=== PATIENT | female | born 1980 | race Caucasian/White ===

== ENCOUNTER → 2017-05-05 | Outpatient (CLI) | payer MEDICAID ==
[2016-07-13 11:37] VITALS: BMI 54.4
[~2017-05-05] MED LIST: ABILIF5PT PO; ACE3 PO; ACE500 PO; ALB6.7R INH; ALBU2.5V36 INH; ALBU8.5H IH; AMOX-559 PO; ARIP15TA9 PO; ARIP5TAB PO; ARIP5TAB28 PO; AZI250 PO; AZIT-1 PO; BUDE0.5A IH; CEPH500C24 PO; CYCL15CA18 PO; DES100PT PO; DESV50TA9 PO; DEXTROSE 5%(*) 100 ML BAG 100 ML IVPB PRN; DIA5 PO; DIC10 PO; DICL1ADH32 TD; DICY-42 PO; DICY10CA11 PO; DIPH-1 PO; DIPH-740 PO; DOCU-214 PO; DOXY-179 PO; DOXY-181 PO; ECHI80CA2 PO; EPIN0.3P15 IM; ESOM20CA31 PO; FAMO20TA28 PO; FERR240T23 PO; FEXO-67 PO; FLU60SYR30 IM ONLY; FLUT16SP19 NS; FURO20TA19 PO; GABA-503 PO; GABA-549 PO; GING1POW MC; GING250C3 PO; GUAI473L81 PO; HYDR-385 PO; HYDR-4225 PO; HYDR-4309 PO; HYOS0.1225 PO; IBU600 PO; IBU800 PO; IBUP-1618 PO; IPRA3AMP21 IH; KET10 PO; KETC15T TP; KETOCONAZOLE 2% TOP; KORE100C3 PO; LEVE250T42 PO; LEVE250T63 PO; LEVO-85 PO; LEVO500T PO; LEVO50TA86 PO; LEVO750T27 PO; LEVO750T44 PO; LIDOCAINE/SOD BICARB 8.4% SYR ID PRN; LOR5 PO; MAGN27TA6 PO; MAGN296S35 PO; MAGN400C PO; MECL12.5 PO; MECL25TA27 PO; MECL25TA9 PO; MET4 PO; METF500T4 PO; METR-1 PO; MID PO; MULT-865 PO; MUPI15CR2 TP; NAPR-1043 PO; NAPR-724 PO; NAPR220C12 PO; NAPR550T20 PO; NIC10R INH; NITR-105 PO; NS(*) 0.9% 100 ML BAG 100 ML IVPB PRN; NS(*) 0.9% 1000 ML BAG 1,000 ML IV ONE; NYST60PO9 TP; OMEP-125 PO; OXC300 PO; PANT40TA65 PO; PRED20TA6 PO; PRO25 PO; PROM-110 PO; PROP60TA15 PO; PSYL0.5235 PO; RANI-324 PO; RELACORE; ROBC PO; SER50 PO; SERT20OR6 PO; SULF-198 PO; SUMA100T33 PO; SUMA4PEN3 SQ; TIZA-1 PO; TRAZ-163 PO; TRAZ50 PO; TRIA-19 PO; TRIORA DT; TURM500C7 PO; UBID100C48 PO; UBID100C9 PO; VER40 PO; VITA-175 PO; VITA150T2 PO; ZINC30CA2 PO; [UNRECOGNIZED DRUG - OTHER] PO; [UNRECOGNIZED DRUG - OTHER] TOP
[2017-05-05 11:20] VITALS: BP 104/76
[2017-05-05 11:27] LABS: PLATELET COUNT, AUTOMATED 436 K/uL (150-450)
[2017-05-05 12:32] VITALS: BP 119/73
== END ==
LOC: SPU 10:30
PROVIDERS: ATTEND Emergency Medicine
DX: E86.0 Dehydration (principal)
CPT/HCPCS: 85025; J7030; 82040; 82247; 82310; 82374; 82435; 82565; 82947; 84075; 84132; 84155; 84295; 84450; 84460; 84520; 96360

== ENCOUNTER 2017-06-27 18:36 | Emergency (ER) | payer MEDICAID ==
[2016-07-13 11:37] VITALS: Ht 162.6 cm; Wt 138.5 kg
[~2017-06-27] VITALS: Ht 162.6 cm; Wt 138.5 kg
[~2017-06-27 18:36] MED LIST changes: -DEXTROSE 5%(*) 100 ML BAG 100 ML IVPB PRN; -LIDOCAINE/SOD BICARB 8.4% SYR ID PRN; +LISI-362 PO; -NAPR-724 PO; +NAPR500T31 PO; -NS(*) 0.9% 100 ML BAG 100 ML IVPB PRN; -NS(*) 0.9% 1000 ML BAG 1,000 ML IV ONE
--- NOTE | 2017-06-27 18:42 | ER Report ---
History and Physical Time Seen By MD: 18:41 Hx. of Stated Complaint: Ear pain right HPI/ROS 37-year-old female ambulatory to the emergency room complains of right ear pain 24 hours states she has a fullness sharp pain in her right ear from no drainage no fevers no previous ear infection Remainder of the 14 system rev: Yes Allergies: Coded Allergies: cephalexin (Verified Allergy, Severe, ANAPHYLAXIS, 06/27/17) latex (Verified Allergy, Mild, ITCHING, 06/27/17) onion (Verified Allergy, Mild, ANAPHYLAXIS, 06/27/17) metformin (Verified Adverse Reaction, Intermediate, Myositis, 06/27/17) Home Meds Active Scripts Azithromycin (ZITHROMAX) 250 Mg Tablet, 2 TAB PO ONCE for 4 Days, #8 TAB Prov:OUMAR CARBALLO 06/27/17 Propranolol Hcl (PROPRANOLOL HCL) 60 Mg Tablet, 1 TAB PO BID for 90 Days, #90 TAB 4 Refills Prov:JOE JOLLEY MD 04/27/17 Levothyroxine Sodium (LEVOTHYROXINE SODIUM) 50 Mcg Tablet, 1 TAB PO QDAY, #90 TAB 3 Refills Prov:JOE JOLLEY MD 01/20/17 Fluticasone Prop 50 Mcg Ns (FLONASE 50 MCG NS) 16 Gm [place].susp, 1 SPRAYS NS BID , #3 BOT 3 Refills Prov:JOE JOLLEY MD 01/20/17 Pantoprazole Sodium (PANTOPRAZOLE SODIUM) 40 Mg Tablet.dr, 1 TAB PO QDAY, #90 TAB 3 Refills Prov:JOE JOLLEY MD 01/20/17 Albuterol Sulfate 90 Mcg/Act (PROAIR HFA 90 MCG/ACT) 8.5 Gm Hfa.aer.ad, 1-2 PUFF IH 3-4XD, #1 INHALER 11 Refills Prov:JOE JOLLEY MD 11/01/16 Tizanidine Hcl (TIZANIDINE HCL) 2 Mg Tablet, 1 TAB PO DAILY, #30 TAB 11 Refills Prov:JOE JOLLEY MD 11/01/16 Ranitidine Hcl (ZANTAC) 150 Mg Tablet, 1 TAB PO BID, #180 TAB 3 Refills Prov:JOE JOLLEY MD 10/17/16 Meclizine Hcl (MECLIZINE HCL) 25 Mg Tablet, 1 TAB PO BID, #180 TAB 3 Refills Prov:JOE JOLLEY MD 10/17/16 Fexofenadine Hcl (FARIHA ALLERGY) 180 Mg Tablet, 1 TAB PO QDAY, #90 TAB 3 Refills Prov:JOE JOLLEY MD 10/10/16 Albuterol Sulfate 0.083% (ALBUTEROL SULFATE 0.083%) 2.5 Mg/3 Ml Vial.neb, 2.5 MG INH Q4-6H Y for WHEEZING, #25 INH 2 Refills Prov:RAYSHAWN ARMAS V DO 06/15/16 Reported Medications Gabapentin (GABAPENTIN) 300 Mg Capsule, 1 CAP PO TID, CAPSULE 09/12/16 Epinephrine (EPIPEN 2-YUVAL) 0.3 Mg/0.3 Ml Pen.injctr, 0.3 MG IM PRN 09/12/16 Desvenlafaxine Succinate (PRISTIQ ER) 100 Mg Tabcr, 1 TAB PO DAILY 07/12/16 Levetiracetam (KEPPRA) 250 Mg Tablet, 1 TAB PO BID, TAB 02/29/16 Multivitamin (DAILY MULTIPLE VITAMIN) 1 Each Tablet, 1 EACH PO QDAY 01/23/16 Discontinued Reported Medications Aripiprazole (ABILIFY) 5 Mg Tablet, 1 TAB PO QDAY, #10 TAB 09/21/16 Discontinued Scripts Lisinopril (LISINOPRIL) 10 Mg Tablet, 10 MG PO QDAY, #30 TAB Prov:JOE JOLLEY MD 06/09/17 Diphenoxylate Hcl/Atropine (LOMOTIL TABLET) 1 Each Tablet, 1 EACH PO Q4-6H, #20 TAB Prov:JOE JOLLEY MD 05/05/17 Past Medical/Surgical History A fever, seizures, headaches, migraine, hypercholesterolemia, hyperlipidemia, hypertension, emphysema, oxygen dependent, GERD, tubal ligation, hysterectomy, Reviewed Nurses Notes: Yes Old Medical Records Reviewed: Yes Hx Smoking: Yes Smoking Status: Current: Every Day Smoker Exposure to Second Hand Smoke?: No Hx Substance Use Disorder: No Hx Alcohol Use: Yes (RARE) Constitutional Vital Sign - Last 24 Hours 06/27/17 18:45 Temp 97.8 Pulse 84 Resp 17 B/P (MAP) 141/78 Pulse Ox 95 O2 Delivery Room Air Physical Exam 37-year-old female alert oriented mild distress HEENT has normocephalic/ atraumatic tympanic membranes she has a bulging right eardrum also noted to have her right ear canal appears that she may have been manipulating something trying to clean it throat is non-reddened no lymphadenopathy neck is supple no JVD heart rate regular no murmurs rubs and gallops lungs decreased bilateral bases abdomen is obese bowel sounds 4 moves all extremities trace peripheral edema Medical Decision Making ED Course/Re-evaluation ED Course 1st doses azithromycin given by mouth she does have a penicillin allergy, Ciprodex 3 drops to right ear dispensed rest of medication Re-evaluation No acute distress some dismissal Decision to Disposition Date: Jun 27, 2017 Decision to Disposition Time: 18:56 Depart Departure Latest Vital Signs Vital Signs Date Time Temp Pulse Resp B/P (MAP) Pulse Ox O2 Delivery O2 Flow Rate FiO2 06/27/17 18:45 97.8 84 17 141/78 95 Room Air Impression: Primary Impression: Otitis media Additional Impression: Otitis externa of right ear Condition: Improved Disposition: HOME OR SELF-CARE Referrals: JOE JOLLEY MD (PCP) 1 Week New Scripts Azithromycin (ZITHROMAX) 250 Mg Tablet 2 TAB PO ONCE for 4 Days, #8 TAB Prov: OUMAR CARBALLO 06/27/17 Patient Instructions: Otitis Externa (DC), Otitis Media (ED) Additional Instructions: Take Zithromax 500 mg daily for 4 additional days Ciprodex drops 3 drops twice a day for 7 days Problem Qualifiers OUMAR CARBALLO Jun 27, 2017 18:42
[2017-06-27 18:45] VITALS: BP 141/78
[2017-06-27] MEDS ORDERED: CIPRO RIGHT EAR ONE (18:50)
[2017-06-27] MEDS ORDERED: AZIT-1 PO (18:50)
[2017-06-27] MEDS ORDERED: HYDROCORT RIGHT EAR ONE (18:50)
[2017-06-27] MEDS ORDERED: AZITHROMYCIN 250 MG TAB PO ONE (18:50)
== END 2017-06-27 19:10 | disposition home or self-care (01) ==
LOC: ER 18:56
DX: H66.91 Otitis media, unspecified, right ear (principal); H60.91 Unspecified otitis externa, right ear
CPT/HCPCS: 99282; Q0144

== ENCOUNTER → 2017-07-07 | Outpatient (CLI) | payer MEDICAID ==
[2016-07-13 11:37] VITALS: BMI 54.4
[~2017-07-07] MED LIST changes: +LEVO-3 PO
== END ==
LOC: LAB 10:22
PROVIDERS: ATTEND Emergency Medicine
DX: G40.909 Epilepsy, unspecified, not intractable, without status epilepticus (principal); R73.03 Prediabetes; E03.9 Hypothyroidism, unspecified
CPT/HCPCS: 36415; 82310; 82374; 82435; 82565; 82947; 83036; 84132; 84295; 84443; 84520

== ENCOUNTER → 2017-07-19 | Outpatient (CLI) | payer MEDICAID ==
[2016-07-13 11:37] VITALS: BMI 54.4
== END ==
LOC: RESP 07:22
PROVIDERS: ATTEND Psychiatry & Neurology Neurology
DX: G40.009 Localization-related (focal) (partial) idiopathic epilepsy and epileptic syndromes with seizures of localized onset, not intractable, without status epilepticus (principal)
CPT/HCPCS: 95819

== ENCOUNTER → 2017-09-06 | Outpatient (CLI) | payer MEDICAID ==
[2016-07-13 11:37] VITALS: BMI 54.4
[~2017-09-06] MED LIST changes: -RANI-324 PO; +RANI-366 PO
== END ==
LOC: LAB 08:53
PROVIDERS: ATTEND Emergency Medicine
DX: E03.9 Hypothyroidism, unspecified (principal); I10 Essential (primary) hypertension
CPT/HCPCS: 36415; 82310; 82374; 82435; 82565; 82947; 84132; 84295; 84443; 84520

== ENCOUNTER 2017-10-04 21:29 | Emergency (ER) | payer MEDICAID ==
[2016-07-13 11:37] VITALS: Wt 141.7 kg
--- NOTE | 2017-10-04 21:35 | ER Report ---
History and Physical Time Seen By MD: 21:43 HPI/ROS This is a 37-year-old female with multiple medical problems who presents to the emergency department with blood in her stool and pain with stooling and passing of gas. She has a long-standing history of problems with hemorrhoids. She states this feels different than her hemorrhoids. She has had various episodes of blood in her stool and has been receiving home endoscopies every 3 years for the past 10 years. Last colonoscopy was one year ago. They have been normal thus far. She also reports intermittent constipation as well as diarrhea. She denies abdominal pain. She has no other complaints Remainder of the 14 system rev: Yes Allergies: Coded Allergies: cephalexin (Verified Allergy, Severe, ANAPHYLAXIS, 06/27/17) latex (Verified Allergy, Mild, ITCHING, 06/27/17) onion (Verified Allergy, Mild, ANAPHYLAXIS, 06/27/17) metformin (Verified Adverse Reaction, Intermediate, Myositis, 06/27/17) Home Meds Active Scripts Levothyroxine Sodium (LEVOTHYROXINE SODIUM) 100 Mcg Tablet, 100 MCG PO DAILY, # 90 TAB 3 Refills Prov:JOE JOLLEY MD 09/06/17 Lisinopril (LISINOPRIL) 10 Mg Tablet, 10 MG PO QDAY, #90 TAB 3 Refills Prov:JOE JOLLEY MD 09/01/17 Meclizine Hcl (MECLIZINE HCL) 25 Mg Tablet, 1 TAB PO BID, #180 TAB 3 Refills Prov:JOE JOLLEY MD 07/07/17 Fluticasone Prop 50 Mcg Ns (FLONASE 50 MCG NS) 16 Gm [place].susp, 1 SPRAYS NS BID , #3 BOT 3 Refills Prov:JOE JOLLEY MD 01/20/17 Pantoprazole Sodium (PANTOPRAZOLE SODIUM) 40 Mg Tablet.dr, 1 TAB PO QDAY, #90 TAB 3 Refills Prov:JOE OJLLEY MD 01/20/17 Albuterol Sulfate 90 Mcg/Act (PROAIR HFA 90 MCG/ACT) 8.5 Gm Hfa.aer.ad, 1-2 PUFF IH 3-4XD, #1 INHALER 11 Refills Prov:JOE JOLLEY MD 11/01/16 Tizanidine Hcl (TIZANIDINE HCL) 2 Mg Tablet, 1 TAB PO DAILY, #30 TAB 11 Refills Prov:JOE JOLLEY MD 11/01/16 Ranitidine Hcl (ZANTAC) 150 Mg Tablet, 1 TAB PO BID, #180 TAB 3 Refills Prov:JOE JOLLEY MD 10/17/16 Fexofenadine Hcl (FARIHA ALLERGY) 180 Mg Tablet, 1 TAB PO QDAY, #90 TAB 3 Refills Prov:JOE JOLLEY MD 10/10/16 Albuterol Sulfate 0.083% (ALBUTEROL SULFATE 0.083%) 2.5 Mg/3 Ml Vial.neb, 2.5 MG INH Q4-6H Y for WHEEZING, #25 INH 2 Refills Prov:RAYSHAWN ARMAS DO 06/15/16 Reported Medications Gabapentin (GABAPENTIN) 300 Mg Capsule, 1 CAP PO TID, CAPSULE 09/12/16 Epinephrine (EPIPEN 2-YUVAL) 0.3 Mg/0.3 Ml Pen.injctr, 0.3 MG IM PRN 09/12/16 Desvenlafaxine Succinate (PRISTIQ ER) 100 Mg Tabcr, 1 TAB PO DAILY 07/12/16 Levetiracetam (KEPPRA) 250 Mg Tablet, 1 TAB PO BID, TAB 02/29/16 Multivitamin (DAILY MULTIPLE VITAMIN) 1 Each Tablet, 1 EACH PO QDAY 01/23/16 Reviewed Nurses Notes: Yes Old Medical Records Reviewed: Yes Hx Smoking: Yes Smoking Status: Current: Every Day Smoker Exposure to Second Hand Smoke?: No Hx Substance Use Disorder: No Hx Alcohol Use: Yes (RARE) Constitutional Vital Sign - Last 24 Hours 10/04/17 10/04/17 10/04/17 10/04/17 21:33 21:34 21:44 21:59 Temp 98.4 Pulse 99 92 95 Resp 20 B/P (MAP) 150/85 150/85 (106) Pulse Ox 95 96 96 O2 Delivery Room Air 10/04/17 10/04/17 10/04/17 10/04/17 22:00 22:14 22:29 22:30 Pulse 97 94 B/P (MAP) 106/62 (77) 117/57 (77) Pulse Ox 95 95 Physical Exam General Appearance: The patient is alert, has no immediate need for airway protection and no current signs of toxicity. Eyes: Pupils equal and round no injection. Respiratory: Chest is non tender, lungs are clear to auscultation. Cardiac: regular rate and rhythm Gastrointestinal: Abdomen is soft and non tender, no masses, bowel sounds normal. Rectal: External hemorrhoid, not thrombosed. There is a small internal fissure. Extremities have full range of motion and are non tender. Skin: No rashes or lesions. DIFFERENTIAL DIAGNOSIS: After history and physical exam differential diagnosis was considered for hemorrhoids, fissure, colon cancer, diverticulitis Medical Decision Making Data Points Result Diagram: 10/04/17221010/04/171 Laboratory Hematology Test 10/04/17 22:11 Red Blood Count 4.24 M/uL (4.17-5.56) Mean Corpuscular Volume 80.2 fL (80.0-96.0) Mean Corpuscular Hemoglobin 26.7 pg (26.0-33.0) Mean Corpuscular Hemoglobin Concent 33.3 g/dL (32.0-36.0) Red Cell Distribution Width 16.8 % (11.5-14.5) Mean Platelet Volume 7.7 fL (7.2-11.1) Neutrophils (%) (Auto) 61.7 % (39.4-72.5) Lymphocytes (%) (Auto) 29.2 % (17.6-49.6) Monocytes (%) (Auto) 5.5 % (4.1-12.4) Eosinophils (%) (Auto) 2.6 % (0.4-6.7) Basophils (%) (Auto) 1.0 % (0.3-1.4) Nucleated RBC Relative Count (auto) 0.0 /100WBC Neutrophils # (Auto) 6.3 K/uL (2.0-7.4) Lymphocytes # (Auto) 3.0 K/uL (1.3-3.6) Monocytes # (Auto) 0.6 K/uL (0.3-1.0) Eosinophils # (Auto) 0.3 K/uL (0.0-0.5) Basophils # (Auto) 0.1 K/uL (0.0-0.1) Nucleated RBC Absolute Count (auto) 0.00 K/uL Sodium Level 139 mmol/L (137-145) Potassium Level 3.4 mmol/L (3.5-5.0) Chloride Level 101 mmol/L (98-107) Carbon Dioxide Level 23 mmol/L (22-31) Blood Urea Nitrogen 9 mg/dl (7-18) Creatinine 0.70 mg/dl (0.52-1.04) Glomerular Filtration Rate Calc > 60.0 Random Glucose 165 mg/dl (75-110) Calcium Level 9.1 mg/dl (8.4-10.2) Chemistry Test 10/04/17 22:11 White Blood Count 10.2 k/uL (4.5-11.0) Red Blood Count 4.24 M/uL (4.17-5.56) Hemoglobin 11.3 g/dL (12.0-16.0) Hematocrit 34.0 % (34.0-47.0) Mean Corpuscular Volume 80.2 fL (80.0-96.0) Mean Corpuscular Hemoglobin 26.7 pg (26.0-33.0) Mean Corpuscular Hemoglobin Concent 33.3 g/dL (32.0-36.0) Red Cell Distribution Width 16.8 % (11.5-14.5) Platelet Count 339 K/uL (150-450) Mean Platelet Volume 7.7 fL (7.2-11.1) Neutrophils (%) (Auto) 61.7 % (39.4-72.5) Lymphocytes (%) (Auto) 29.2 % (17.6-49.6) Monocytes (%) (Auto) 5.5 % (4.1-12.4) Eosinophils (%) (Auto) 2.6 % (0.4-6.7) Basophils (%) (Auto) 1.0 % (0.3-1.4) Nucleated RBC Relative Count (auto) 0.0 /100WBC Neutrophils # (Auto) 6.3 K/uL (2.0-7.4) Lymphocytes # (Auto) 3.0 K/uL (1.3-3.6) Monocytes # (Auto) 0.6 K/uL (0.3-1.0) Eosinophils # (Auto) 0.3 K/uL (0.0-0.5) Basophils # (Auto) 0.1 K/uL (0.0-0.1) Nucleated RBC Absolute Count (auto) 0.00 K/uL Glomerular Filtration Rate Calc > 60.0 Calcium Level 9.1 mg/dl (8.4-10.2) ED Course/Re-evaluation ED Course 37-year-old female who presents to the emergency department with pain in her anus with stooling or with passing of gas. He does have a history of hemorrhoids. On rectal exam she has a external hemorrhoid that is not thrombosed she also has evidence of an anal fissure. I counseled her on making sure that she does not get constipated. I also spoke with her about the treatment of anal fissures. She will continue home management. She also states that she has had bleeding from her rectum in the past and has been having every three-year colonoscopies since she was 27 years old. Last colonoscopy was one year ago. She has no abdominal pain. She will continue supportive management of her anal fissures Decision to Disposition Date: Oct 04, 2017 Decision to Disposition Time: 23:24 Depart Departure Latest Vital Signs Vital Signs Date Time Temp Pulse Resp B/P (MAP) Pulse Ox O2 Delivery O2 Flow Rate FiO2 10/04/17 22:30 117/57 (77) 10/04/17 22:29 94 95 10/04/17 21:33 98.4 20 Room Air Impression: Primary Impression: ACUTE ANAL FISSURE Condition: Improved Disposition: HOME OR SELF-CARE Referrals: JOE JOLLEY MD (PCP) Patient Instructions: Anal Fissure (ED) PEDRO GLEZ MD Oct 04, 2017 21:35
[2017-10-04 22:18] LABS: PLATELET COUNT, AUTOMATED 339 K/uL (150-450)
[2017-10-04 23:30] VITALS: BP 125/70
[2017-10-05] MEDS ORDERED: FEXO-67 PO (14:54)
== END 2017-10-04 23:34 | disposition home or self-care (01) ==
LOC: ER 21:46
DX: K60.0 Acute anal fissure (principal); K64.4 Residual hemorrhoidal skin tags
CPT/HCPCS: 82310; 82374; 82435; 82565; 82947; 84132; 84295; 84520; 85025; 99282

== ENCOUNTER 2017-10-18 10:09 | Emergency (ER) | payer MEDICAID ==
[2016-07-13 11:37] VITALS: Wt 140.6 kg
[2017-10-18] MEDS ORDERED: LURA20TA PO (10:22)
--- NOTE | 2017-10-18 10:37 | ER Report ---
History and Physical Time Seen By MD: 10:37 Hx. of Stated Complaint: SEVERE NAUSEA FOR THE PAST THREE DAYS. WAS ABLE TO EAT TWO FULL MEALS YESTERDAY WITHOUT VOMMITTING, BUT STATES PAIN IN STOMACH WAS GETTING WORSE LAST NIGHT. HPI/ROS CHIEF COMPLAINT: Nausea and abdominal pain HISTORY OF PRESENT ILLNESS: This is a 37-year-old female. She is having severe nausea for the last 3 days. She has been trying to drink fluid but probably not getting as much as she needs to. She was able to eat 2 meals yesterday without vomiting but the pain is now getting worse today. She has pain on the left side of her abdomen and then a little bit in the epigastric area. She denies any fevers. She is having some loose stools, last bowel movement was last night. No blood or melena. Urinating a little bit less but denies any dysuria. No shortness of breath or chest pain. She does feel weak and maybe a little bit lightheaded. Allergies: Coded Allergies: cephalexin (Verified Allergy, Severe, ANAPHYLAXIS, 06/27/17) latex (Verified Allergy, Mild, ITCHING, 06/27/17) onion (Verified Allergy, Mild, ANAPHYLAXIS, 06/27/17) metformin (Verified Adverse Reaction, Intermediate, Myositis, 06/27/17) Home Meds Active Scripts Ondansetron (ZOFRAN ODT) 4 Mg Tab.rapdis, 4 MG PO Q6H Y for NAUSEA/VOMITING, # 20 TAB.KIM 0 Refills Prov:HARRIS WATSON MD 10/18/17 Hydrocodone Bit/Acetaminophen (HYDROCODON-ACETAMINOPHEN 5-325) 1 Each Tablet, 1 EACH PO Q4H Y for PAIN, #12 TAB 0 Refills Prov:HARRIS WATSON MD 10/18/17 Fexofenadine Hcl (FARIHA ALLERGY) 180 Mg Tablet, 1 TAB PO QDAY, #90 TAB 3 Refills Prov:JOE JOLLEY MD 10/05/17 Levothyroxine Sodium (LEVOTHYROXINE SODIUM) 100 Mcg Tablet, 100 MCG PO DAILY, # 90 TAB 3 Refills Prov:JOE JOLLEY MD 09/06/17 Lisinopril (LISINOPRIL) 10 Mg Tablet, 10 MG PO QDAY, #90 TAB 3 Refills Prov:JOE JOLLEY MD 09/01/17 Meclizine Hcl (MECLIZINE HCL) 25 Mg Tablet, 1 TAB PO BID, #180 TAB 3 Refills Prov:JOE JOLLEY MD 07/07/17 Fluticasone Prop 50 Mcg Ns (FLONASE 50 MCG NS) 16 Gm [place].susp, 1 SPRAYS NS BID , #3 BOT 3 Refills Prov:JOE JOLLEY MD 01/20/17 Pantoprazole Sodium (PANTOPRAZOLE SODIUM) 40 Mg Tablet.dr, 1 TAB PO QDAY, #90 TAB 3 Refills Prov:JOE JOLLEY MD 01/20/17 Albuterol Sulfate 90 Mcg/Act (PROAIR HFA 90 MCG/ACT) 8.5 Gm Hfa.aer.ad, 1-2 PUFF IH 3-4XD, #1 INHALER 11 Refills Prov:JOE JOLLEY MD 11/01/16 Tizanidine Hcl (TIZANIDINE HCL) 2 Mg Tablet, 1 TAB PO DAILY, #30 TAB 11 Refills Prov:JOE JOLLEY MD 11/01/16 Ranitidine Hcl (ZANTAC) 150 Mg Tablet, 1 TAB PO BID, #180 TAB 3 Refills Prov:JOE JOLLEY MD 10/17/16 Albuterol Sulfate 0.083% (ALBUTEROL SULFATE 0.083%) 2.5 Mg/3 Ml Vial.neb, 2.5 MG INH Q4-6H Y for WHEEZING, #25 INH 2 Refills Prov:RAYSHAWN AMRAS V DO 06/15/16 Reported Medications Lurasidone Hcl (LATUDA) 20 Mg Tablet, 20 MG PO HS 10/18/17 Gabapentin (GABAPENTIN) 300 Mg Capsule, 1 CAP PO TID, CAPSULE 09/12/16 Epinephrine (EPIPEN 2-YUVAL) 0.3 Mg/0.3 Ml Pen.injctr, 0.3 MG IM PRN 09/12/16 Desvenlafaxine Succinate (PRISTIQ ER) 100 Mg Tabcr, 1 TAB PO DAILY 07/12/16 Levetiracetam (KEPPRA) 250 Mg Tablet, 1 TAB PO BID, TAB 02/29/16 Multivitamin (DAILY MULTIPLE VITAMIN) 1 Each Tablet, 1 EACH PO QDAY 01/23/16 Reviewed Nurses Notes: Yes Hx Smoking: Yes Smoking Status: Current: Every Day Smoker Exposure to Second Hand Smoke?: No Hx Substance Use Disorder: No Hx Alcohol Use: Yes (RARE) Constitutional Vital Sign - Last 24 Hours 10/18/17 10/18/17 10/18/17 10/18/17 10:11 10:13 10:14 10:19 Temp 98.4 Pulse 77 82 80 Resp 16 B/P (MAP) 135/69 (91) Pulse Ox 94 95 93 O2 Delivery Room Air 10/18/17 10/18/17 10/18/17 10/18/17 10:29 10:30 10:34 10:39 Pulse 80 74 ??? B/P (MAP) 129/77 (94) Pulse Ox 94 94 93 10/18/17 10/18/17 10/18/17 10/18/17 10:44 10:49 10:54 10:59 Pulse 77 80 72 79 Pulse Ox 93 93 93 94 10/18/17 10/18/17 10/18/17 10/18/17 11:00 11:04 11:09 11:14 Pulse 86 86 83 B/P (MAP) 121/75 (90) Pulse Ox 90 88 90 10/18/17 10/18/17 10/18/17 10/18/17 11:29 11:30 11:34 11:39 Pulse 84 77 86 B/P (MAP) 126/71 (89) Pulse Ox 90 91 91 10/18/17 10/18/17 10/18/17 10/18/17 11:44 11:49 11:54 12:00 Pulse 88 80 81 B/P (MAP) 117/63 (81) Pulse Ox 90 92 90 10/18/17 10/18/17 10/18/17 10/18/17 12:09 12:24 12:30 12:54 Pulse 74 74 89 B/P (MAP) 120/79 (93) Pulse Ox 89 88 84 10/18/17 10/18/17 13:00 13:09 Pulse 84 B/P (MAP) 121/77 (92) Pulse Ox 89 Intake and Output 10/18/17 10/18/17 10/19/17 15:00 23:00 07:00 Intake Total 1000 ml Balance 1000 ml Physical Exam General Appearance: The patient is alert. No acute distress. Eyes: Pupils are equal, round. Reactive to light. No pallor, injection or icterus. Extraocular movements are intact. ENT: Mucous membranes are a little bit dry, otherwise normal oral mucosa. Neck: Supple and non tender. Respiratory: Lungs are clear to auscultation. Cardiovascular: Regular rate and rhythm. No murmurs, gallops or rubs. Normal capillary refill. Gastrointestinal: Abdomen is soft, there is some discomfort in the left lower quadrant and in the epigastric area.Nondistended. Some guarding but no rebound. No masses or organomegaly. Normal active bowel sounds. No costovertebral angle tenderness with percussion. Neurological: Alert and oriented x3. No focal neurologic deficits Skin: Warm and dry. No rashes. Musculoskeletal: Extremities are nontender. No tenderness in palpation of the cervical, thoracic and lumbar spine. DIFFERENTIAL DIAGNOSIS: After history and physical exam, differential diagnosis was considered for a patient with some nausea and abdominal pain including but not limited to appendicitis, cholecystitis, colitis, diverticulitis, gastritis and urinary tract infection. Medical Decision Making Data Points Result Diagram: 10/18/17 1020 10/18/17 1020 Laboratory Hematology Test 10/18/17 10:20 10/18/17 10:26 Red Blood Count 4.66 M/uL (4.17-5.56) Mean Corpuscular Volume 79.7 fL (80.0-96.0) Mean Corpuscular Hemoglobin 26.8 pg (26.0-33.0) Mean Corpuscular Hemoglobin Concent 33.6 g/dL (32.0-36.0) Red Cell Distribution Width 16.7 % (11.5-14.5) Mean Platelet Volume 7.8 fL (7.2-11.1) Neutrophils (%) (Auto) 65.2 % (39.4-72.5) Lymphocytes (%) (Auto) 26.0 % (17.6-49.6) Monocytes (%) (Auto) 6.0 % (4.1-12.4) Eosinophils (%) (Auto) 2.2 % (0.4-6.7) Basophils (%) (Auto) 0.6 % (0.3-1.4) Nucleated RBC Relative Count (auto) 0.1 /100WBC Neutrophils # (Auto) 7.1 K/uL (2.0-7.4) Lymphocytes # (Auto) 2.8 K/uL (1.3-3.6) Monocytes # (Auto) 0.6 K/uL (0.3-1.0) Eosinophils # (Auto) 0.2 K/uL (0.0-0.5) Basophils # (Auto) 0.1 K/uL (0.0-0.1) Nucleated RBC Absolute Count (auto) 0.01 K/uL Sodium Level 141 mmol/L (137-145) Potassium Level 4.2 mmol/L (3.5-5.0) Chloride Level 102 mmol/L (98-107) Carbon Dioxide Level 22 mmol/L (22-31) Blood Urea Nitrogen 8 mg/dl (7-18) Creatinine 0.70 mg/dl (0.52-1.04) Glomerular Filtration Rate Calc > 60.0 Random Glucose 147 mg/dl (75-110) Calcium Level 9.3 mg/dl (8.4-10.2) Total Bilirubin 0.8 mg/dl (0.2-1.3) Aspartate Amino Transf (AST/SGOT) 86 U/L (0-35) Alanine Aminotransferase (ALT/SGPT) 48 U/L (0-56) Alkaline Phosphatase 105 U/L (0-126) C-Reactive Protein 2.5 mg/dl (<1.0) Total Protein 7.9 g/dl (6.3-8.2) Albumin 4.4 g/dl (3.5-5.0) Amylase Level 80 U/L (0-110) Lipase 89 U/L (23-300) Human Chorionic Gonadotropin, Qual Negative (NEGATIVE) Urine Color Yellow Urine Clarity Slightly-cloudy Urine pH 5.0 pH (4.8-9.5) Urine Specific [place] 1.025 Urine Protein Negative mg/dL (NEGATIVE) Urine Glucose (UA) Negative mg/dL (NEGATIVE) Urine Ketones 20 mg/dL (NEGATIVE) Urine Blood Negative (NEGATIVE) Urine Nitrite Negative (NEGATIVE) Urine Bilirubin Negative (NEGATIVE) Urine Urobilinogen 2.0 mg/dL (0.2-1.9) Urine Leukocyte Esterase Negative (NEGATIVE) Urine RBC <1 /HPF (0-2/HPF) Urine WBC 1 /HPF (0-5/HPF) Urine Squamous Epithelial Cells Many /LPF (</=FEW) Urine Bacteria Negative /HPF (NONE-FEW) Urine Mucus Few /HPF (NONE-FEW) Chemistry Test 10/18/17 10:20 10/18/17 10:26 White Blood Count 10.8 k/uL (4.5-11.0) Red Blood Count 4.66 M/uL (4.17-5.56) Hemoglobin 12.5 g/dL (12.0-16.0) Hematocrit 37.1 % (34.0-47.0) Mean Corpuscular Volume 79.7 fL (80.0-96.0) Mean Corpuscular Hemoglobin 26.8 pg (26.0-33.0) Mean Corpuscular Hemoglobin Concent 33.6 g/dL (32.0-36.0) Red Cell Distribution Width 16.7 % (11.5-14.5) Platelet Count 430 K/uL (150-450) Mean Platelet Volume 7.8 fL (7.2-11.1) Neutrophils (%) (Auto) 65.2 % (39.4-72.5) Lymphocytes (%) (Auto) 26.0 % (17.6-49.6) Monocytes (%) (Auto) 6.0 % (4.1-12.4) Eosinophils (%) (Auto) 2.2 % (0.4-6.7) Basophils (%) (Auto) 0.6 % (0.3-1.4) Nucleated RBC Relative Count (auto) 0.1 /100WBC Neutrophils # (Auto) 7.1 K/uL (2.0-7.4) Lymphocytes # (Auto) 2.8 K/uL (1.3-3.6) Monocytes # (Auto) 0.6 K/uL (0.3-1.0) Eosinophils # (Auto) 0.2 K/uL (0.0-0.5) Basophils # (Auto) 0.1 K/uL (0.0-0.1) Nucleated RBC Absolute Count (auto) 0.01 K/uL Glomerular Filtration Rate Calc > 60.0 Calcium Level 9.3 mg/dl (8.4-10.2) Total Bilirubin 0.8 mg/dl (0.2-1.3) Aspartate Amino Transf (AST/SGOT) 86 U/L (0-35) Alanine Aminotransferase (ALT/SGPT) 48 U/L (0-56) Alkaline Phosphatase 105 U/L (0-126) C-Reactive Protein 2.5 mg/dl (<1.0) Total Protein 7.9 g/dl (6.3-8.2) Albumin 4.4 g/dl (3.5-5.0) Amylase Level 80 U/L (0-110) Lipase 89 U/L (23-300) Human Chorionic Gonadotropin, Qual Negative (NEGATIVE) Urine Color Yellow Urine Clarity Slightly-cloudy Urine pH 5.0 pH (4.8-9.5) Urine Specific [place] 1.025 Urine Protein Negative mg/dL (NEGATIVE) Urine Glucose (UA) Negative mg/dL (NEGATIVE) Urine Ketones 20 mg/dL (NEGATIVE) Urine Blood Negative (NEGATIVE) Urine Nitrite Negative (NEGATIVE) Urine Bilirubin Negative (NEGATIVE) Urine Urobilinogen 2.0 mg/dL (0.2-1.9) Urine Leukocyte Esterase Negative (NEGATIVE) Urine RBC <1 /HPF (0-2/HPF) Urine WBC 1 /HPF (0-5/HPF) Urine Squamous Epithelial Cells Many /LPF (</=FEW) Urine Bacteria Negative /HPF (NONE-FEW) Urine Mucus Few /HPF (NONE-FEW) Urinalysis Test 10/18/17 10:26 Urine Color Yellow Urine Clarity Slightly-cloudy Urine pH 5.0 pH (4.8-9.5) Urine Specific [place] 1.025 Urine Protein Negative mg/dL (NEGATIVE) Urine Glucose (UA) Negative mg/dL (NEGATIVE) Urine Ketones 20 mg/dL (NEGATIVE) Urine Blood Negative (NEGATIVE) Urine Nitrite Negative (NEGATIVE) Urine Bilirubin Negative (NEGATIVE) Urine Urobilinogen 2.0 mg/dL (0.2-1.9) Urine Leukocyte Esterase Negative (NEGATIVE) Urine RBC <1 /HPF (0-2/HPF) Urine WBC 1 /HPF (0-5/HPF) Urine Squamous Epithelial Cells Many /LPF (</=FEW) Urine Bacteria Negative /HPF (NONE-FEW) Urine Mucus Few /HPF (NONE-FEW) EKG/Imaging Imaging CT abdomen with IV contrast CT pelvis with IV contrast History: Left-sided and epigastric abdominal pain and vomiting COMPARISON STUDIES: CT abdomen and pelvis 08/10/2016. TECHNIQUE: Axial CT images were obtained through the abdomen and pelvis during injection of nonionic iodinated intravenous contrast. Reformatted coronal and sagittal images were also obtained. Contrast: 75 ml of Isovue-370 IV contrast. One of the following dose optimization techniques was utilized in the performance of this exam: Automated exposure control; adjustment of the mA and/ or kV according to the patient's size; or use of an iterative reconstruction technique. Specific details can be referenced in the facility's radiology CT exam operational policy. FINDINGS: Chest bases: Negative Liver: Liver is large, with right and left lobes measuring 27 and 14 cm length , respectively, unchanged. Liver margins are smooth. Focal fatty infiltration sparing is seen adjacent to the gallbladder fossa and in the peripheral aspect of the right lobe anterior segment, unchanged. Gallbladder and bile ducts: Gallbladder is present. Bile ducts are normal caliber. Spleen: size is normal. Pancreas: negative Adrenal glands: negative Kidneys: Lower pole cortical cyst, 17 x 15 mm. Pelvic structures: Dominant left ovarian follicle. Right ovary and anteverted uterus are unremarkable. Bilateral fallopian tube clamps are noted. Bowel and mesenteries: Normal appendix in the right lower abdominal quadrant. Small bowel and colon are unremarkable. Ascites: None Vessels: A circumaortic left renal vein is noted. 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 Body wall: negative Lymph node assessment: negative IMPRESSION: 1. Hepatomegaly and hepatic steatosis, unchanged. 2. Negative CT for an acute abdominal/pelvic process. Report Dictated By: Katie Nunez MD at 10/18/2017 11:42 AM ED Course/Re-evaluation Clinical Indication for ER IV: Hydration, IV Access ED Course Labs showed some mild dehydration, CRP was mildly elevated. CT scan of the abdomen and pelvis was negative for any acute problem. I reviewed all this with the patient. She did have a liter of normal saline. Some relief with Zofran 4 mg IV and morphine 4 mg IV. After review of the workup with the patient, she will return home with some Zofran and hydrocodone to use for pain and nausea. She will start clear liquids and slowly advance diet as tolerated. This looks like it is probably a viral gastroenteritis. Prior to discharge, she did have some dizziness but this improved and she was able to go home without incident. Decision to Disposition Date: Oct 18, 2017 Decision to Disposition Time: 11:59 Depart Departure Latest Vital Signs Vital Signs Date Time Temp Pulse Resp B/P (MAP) Pulse Ox O2 Delivery O2 Flow Rate FiO2 10/18/17 13:09 84 89 10/18/17 13:00 121/77 (92) 10/18/17 10:13 98.4 16 Room Air Impression: Primary Impression: Gastroenteritis Condition: Improved Disposition: HOME OR SELF-CARE Referrals: JOE JOLLEY MD (PCP) New Scripts Ondansetron (ZOFRAN ODT) 4 Mg Tab.rapdis 4 MG PO Q6H Y for NAUSEA/VOMITING, #20 TAB.KIM 0 Refills Prov: HARRIS WATSON MD 10/18/17 Hydrocodone Bit/Acetaminophen (HYDROCODON-ACETAMINOPHEN 5-325) 1 Each Tablet 1 EACH PO Q4H Y for PAIN, #12 TAB 0 Refills Prov: HARRIS WATSON MD 10/18/17 Patient Instructions: Gastroenteritis (ED) Additional Instructions: Clear liquids today, then advance to a bland or BRAT diet. Take Ibuprofen 200mg over the counter tablets, 3-4 tablets every 8 hours as needed for pain. Lortab 5/325, one every 4 hours as needed for pain. Zofran 4mg, one every 6 hours as needed for nausea or vomiting. Follow-up with your regular provider in the next 7-10 days. Return to the ER for severe pain or vomiting that is not controlled with home medications, or for severe fevers or chills. HARRIS WATSON MD Oct 18, 2017 10:37
[2017-10-18] MEDS ORDERED: NS(*) 0.9% 1000 ML BAG 1,000 ML IV ONE (10:42)
[2017-10-18] MEDS ORDERED: PANTOPRAZOLE SOD 40 MG IV VIAL IVP ONE (10:45)
[2017-10-18] MEDS ORDERED: MORPHINE 4 MG/ML SDV IVP ONE (10:45)
[2017-10-18] MEDS ORDERED: ONDANSETRON 4 MG/2 ML VIAL IVP ONE (10:45)
[2017-10-18 10:58] LABS: PLATELET COUNT, AUTOMATED 430 K/uL (150-450)
[2017-10-18] MEDS ORDERED: IOPAMIDOL 76% 75 ML INFUS BTL 75 ML ONE (11:12)
--- NOTE | 2017-10-18 11:52 | RADIOLOGY IMAGING REPORT ---
FACILITY: [facility] - [place] PATIENT NAME: Debi Sanchez : 1980 MR: [id number] V: [id number] EXAM DATE: ORDERING PHYSICIAN: HARRIS WATSON TECHNOLOGIST: Location: [facility] - [place] Patient: Debi Sanchez : 1980 Visit/Account:[id number] Date of Sevice: 10/18/2017 CT abdomen with IV contrast CT pelvis with IV contrast History: Left-sided and epigastric abdominal pain and vomiting COMPARISON STUDIES: CT abdomen and pelvis 08/10/2016. TECHNIQUE: Axial CT images were obtained through the abdomen and pelvis during injection of nonioni c iodinated intravenous contrast. Reformatted coronal and sagittal images were also obtained. Contrast: 75 ml of Isovue-370 IV contrast. One of the following dose optimization techniques was utilized in the performance of this exam: Autom ated exposure control; adjustment of the mA and/or kV according to the patient's size; or use of an i terative reconstruction technique. Specific details can be referenced in the facility's radiology C T exam operational policy. FINDINGS: Chest bases: Negative Liver: Liver is large, with right and left lobes measuring 27 and 14 cm length, respectively, unchan ged. Liver margins are smooth. Focal fatty infiltration sparing is seen adjacent to the gallbladder f nasim and in the peripheral aspect of the right lobe anterior segment, unchanged. Gallbladder and bile ducts: Gallbladder is present. Bile ducts are normal caliber. Spleen: size is normal. Pancreas: negative Adrenal glands: negative Kidneys: Lower pole cortical cyst, 17 x 15 mm. Pelvic structures: Dominant left ovarian follicle. Right ovary and anteverted uterus are unremark able. Bilateral fallopian tube clamps are noted. Bowel and mesenteries: Normal appendix in the right lower abdominal quadrant. Small bowel and colon are unremarkable. Ascites: None Vessels: A circumaortic left renal vein is noted. Musculoskeletal: Grade 1 L5-S1 anterolisthesis is caused by bilateral pars interarticularis defects . Body wall: negative Lymph node assessment: negative IMPRESSION: 1. Hepatomegaly and hepatic steatosis, unchanged. 2. Negative CT for an acute abdominal/pelvic process. Report Dictated By: Katie Nunez MD at 10/18/2017 11:42 AM Report E-Signed By: Katie Nunez MD at 10/18/2017 11:48 AM WSN:[id number]
[2017-10-18] MEDS ORDERED: ONDA4TAB PO (12:03)
[2017-10-18] MEDS ORDERED: LOR5/325 PO (12:03)
[2017-10-18 13:00] VITALS: BP 121/77
[2017-10-18] MEDS ORDERED: METH4TAB66 PO (20:22)
== END 2017-10-18 13:19 | disposition home or self-care (01) ==
LOC: ER 10:34
DX: K52.9 Noninfective gastroenteritis and colitis, unspecified (principal)
CPT/HCPCS: 74177; 81001; 82150; 83690; 84703; 85025; 86140; 96361; 96374; 96375; 99284; C9113; J2270; J2405; J7030; Q9967; 82040; 82247; 82310; 82374; 82435; 82565; 82947; 84075; 84132; 84155; 84295; 84450; 84460; 84520

== ENCOUNTER 2017-10-18 18:53 | Emergency (ER) | payer MEDICAID ==
[2016-07-13 11:37] VITALS: Wt 136.1 kg
[~2017-10-18 18:53] MED LIST changes: +LOR5/325 PO; +LURA20TA PO; +ONDA4TAB PO
--- NOTE | 2017-10-18 19:18 | ER Report ---
History and Physical Time Seen By MD: 19:08 Hx. of Stated Complaint: ITCHING BEGAN AT 1700. WORSENING. BENADRYL (75MG) AT 1800. HERE EARLIER TODAY. HPI/ROS CHIEF COMPLAINT: Itching HISTORY OF PRESENT ILLNESS: This is a 37-year-old female who presents to the emergency department for itching. Patient states she was here earlier today was sent home with a prescription for Zofran and hydrocodone, she also had a CT with IV contrast. Patient states she's never had itching like this, she states this began about 1500 today gradual onset. Patient states she took a total of 75 mg of Benadryl which does not seem to help. Patient denies chest pain or shortness of breath. No rashes or hives noted. Patient denies any other complaints. No nausea or vomiting at this time. REVIEW OF SYSTEMS: Respiratory: No cough, no dyspnea. Cardiovascular: No chest pain, no palpitations. Gastrointestinal: No vomiting, no abdominal pain. Musculoskeletal: No back pain. Integumentary: As above. Allergies: Coded Allergies: cephalexin (Verified Allergy, Severe, ANAPHYLAXIS, 06/27/17) latex (Verified Allergy, Mild, ITCHING, 06/27/17) onion (Verified Allergy, Mild, ANAPHYLAXIS, 06/27/17) metformin (Verified Adverse Reaction, Intermediate, Myositis, 06/27/17) Home Meds Active Scripts Methylprednisolone (METHYLPREDNISOLONE) 4 Mg Tab.ds.pk, 4 MG PO DIRECTED, #1 PACK 0 Refills take the medrol dose pack as directed for itching. Prov:HAKEEM FIGUEROA TELEGRAPH REPEATER INSTALLER-BC 10/18/17 Ondansetron (ZOFRAN ODT) 4 Mg Tab.rapdis, 4 MG PO Q6H Y for NAUSEA/VOMITING, # 20 TAB.KIM 0 Refills Prov:HARRIS WATSON MD 10/18/17 Hydrocodone Bit/Acetaminophen (HYDROCODON-ACETAMINOPHEN 5-325) 1 Each Tablet, 1 EACH PO Q4H Y for PAIN, #12 TAB 0 Refills Prov:HARRIS WATSON MD 10/18/17 Fexofenadine Hcl (FARIHA ALLERGY) 180 Mg Tablet, 1 TAB PO QDAY, #90 TAB 3 Refills Prov:JOE JOLLEY MD 10/05/17 Levothyroxine Sodium (LEVOTHYROXINE SODIUM) 100 Mcg Tablet, 100 MCG PO DAILY, # 90 TAB 3 Refills Prov:JOE JOLLEY MD 09/06/17 Lisinopril (LISINOPRIL) 10 Mg Tablet, 10 MG PO QDAY, #90 TAB 3 Refills Prov:JOE JOLLEY MD 09/01/17 Meclizine Hcl (MECLIZINE HCL) 25 Mg Tablet, 1 TAB PO BID, #180 TAB 3 Refills Prov:JOE JOLLEY MD 07/07/17 Fluticasone Prop 50 Mcg Ns (FLONASE 50 MCG NS) 16 Gm [place].susp, 1 SPRAYS NS BID , #3 BOT 3 Refills Prov:JOE JOLLEY MD 01/20/17 Pantoprazole Sodium (PANTOPRAZOLE SODIUM) 40 Mg Tablet.dr, 1 TAB PO QDAY, #90 TAB 3 Refills Prov:JOE JOLLEY MD 01/20/17 Albuterol Sulfate 90 Mcg/Act (PROAIR HFA 90 MCG/ACT) 8.5 Gm Hfa.aer.ad, 1-2 PUFF IH 3-4XD, #1 INHALER 11 Refills Prov:JOE JOLLEY MD 11/01/16 Tizanidine Hcl (TIZANIDINE HCL) 2 Mg Tablet, 1 TAB PO DAILY, #30 TAB 11 Refills Prov:JOE JOLLEY MD 11/01/16 Ranitidine Hcl (ZANTAC) 150 Mg Tablet, 1 TAB PO BID, #180 TAB 3 Refills Prov:JOE JOLLEY MD 10/17/16 Albuterol Sulfate 0.083% (ALBUTEROL SULFATE 0.083%) 2.5 Mg/3 Ml Vial.neb, 2.5 MG INH Q4-6H Y for WHEEZING, #25 INH 2 Refills Prov:RAYSHAWN ARMAS DO 06/15/16 Reported Medications Lurasidone Hcl (LATUDA) 20 Mg Tablet, 20 MG PO HS 10/18/17 Gabapentin (GABAPENTIN) 300 Mg Capsule, 1 CAP PO TID, CAPSULE 09/12/16 Epinephrine (EPIPEN 2-YUVAL) 0.3 Mg/0.3 Ml Pen.injctr, 0.3 MG IM PRN 09/12/16 Desvenlafaxine Succinate (PRISTIQ ER) 100 Mg Tabcr, 1 TAB PO DAILY 07/12/16 Levetiracetam (KEPPRA) 250 Mg Tablet, 1 TAB PO BID, TAB 02/29/16 Multivitamin (DAILY MULTIPLE VITAMIN) 1 Each Tablet, 1 EACH PO QDAY 01/23/16 Past Medical/Surgical History Patient has a past medical and surgical history of seizures, migraines, hypertension, hypercholesterolemia, emphysema, pneumonia, COPD, chronic abdominal pain, frequent UTIs, cyst on ovary, arthritis in the knees back shoulders, right ankle and toe fracture, chronic back pain, hayfever, wears reading glasses, borderline deafness in 1 year, "prediabetic", eczema, tubal ligation, . Reviewed Nurses Notes: Yes Hx Smoking: Yes Smoking Status: Current: Every Day Smoker Exposure to Second Hand Smoke?: No Hx Substance Use Disorder: No Hx Alcohol Use: Yes (RARE) Constitutional Vital Sign - Last 24 Hours 10/18/17 10/18/17 10/18/17 10/18/17 19:00 19:02 19:08 19:28 Temp 99.7 Pulse 87 90 85 Resp 16 B/P (MAP) 144/83 (103) 144/83 Pulse Ox 94 91 88 O2 Delivery Room Air 10/18/17 10/18/17 10/18/17 10/18/17 19:42 19:58 20:00 20:13 Pulse 77 78 B/P (MAP) 114/47 (69) 124/66 (85) Pulse Ox 88 87 10/18/17 10/18/17 10/18/17 20:28 20:29 20:29 Pulse 80 81 Resp 16 B/P (MAP) 107/73 (84) Pulse Ox 92 O2 Delivery Room Air Physical Exam General Appearance: The patient is alert, has no immediate need for airway protection and no current signs of toxicity. Eyes: Pupils equal and round no injection. Respiratory: Chest is non tender, lungs are clear to auscultation. No wheezing. No stridor. Cardiac: regular rate and rhythm. Gastrointestinal: Abdomen is very round, soft and non tender, no masses, bowel sounds normal. Musculoskeletal: Neck: Neck is supple and non tender. Extremities have full range of motion and are non tender. Skin: No rashes or lesions. No hives. DIFFERENTIAL DIAGNOSIS: After history and physical exam differential diagnosis was considered for itching. Medical Decision Making ED Course/Re-evaluation ED Course The patient was admitted to room. A history and physical were obtained. Differential diagnoses were considered. I ordered 25 mg IM Solu-Medrol. 20 mg oral famotidine. Patient states she is feeling better after the medications, itching has improved, patient states he only itching that she has now is along the hairline. Still no signs of respiratory decompensation, no swelling. No urticaria. I did send a Medrol Dosepak patient's pharmacy he will take as directed. Patient was also instructed to follow-up with her primary care provider in 2 days for reevaluation. Return to the emergency department for any acute concerns or worsening symptoms. Patient was in agreement with this plan of care and discharged home. Decision to Disposition Date: Oct 18, 2017 Decision to Disposition Time: 20:19 Depart Departure Latest Vital Signs Vital Signs Date Time Temp Pulse Resp B/P (MAP) Pulse Ox O2 Delivery O2 Flow Rate FiO2 10/18/17 20:29 81 16 92 Room Air 10/18/17 20:29 107/73 (84) 10/18/17 19:02 99.7 Impression: Primary Impression: Itching Condition: Improved Disposition: HOME OR SELF-CARE Referrals: JOE JOLLEY MD (PCP) 2 Days New Scripts Methylprednisolone (METHYLPREDNISOLONE) 4 Mg Tab.ds.pk 4 MG PO DIRECTED, #1 PACK 0 Refills take the medrol dose pack as directed for itching. Prov: HAKEEM FIGUEROAP-BC 10/18/17 Patient Instructions: Itchy Skin (ED) Additional Instructions: Drink plenty of water. Get plenty of rest. Take the Medrol Dosepak as directed for the itching. Follow-up with Dr. power in 2 days for reevaluation. Return to the emergency department for any other concerns or worsening symptoms including shortness of breath or chest pain. HAKEEM FIGUEROA-BC Oct 18, 2017 19:18
[2017-10-18] MEDS ORDERED: methylPREDNIS SUCC 125 MG/2ML IM ONE (19:25)
[2017-10-18] MEDS ORDERED: FAMOTIDINE 20 MG TAB PO ONE (19:25)
[2017-10-18] MEDS ORDERED: METH4TAB66 PO (20:22)
[2017-10-18 20:29] VITALS: BP 107/73
== END 2017-10-18 20:32 | disposition home or self-care (01) ==
LOC: ER 19:23
DX: L29.9 Pruritus, unspecified (principal)
CPT/HCPCS: 96372; 99283; J2930

== ENCOUNTER 2017-10-28 18:15 | Emergency (ER) | payer MEDICAID ==
[2016-07-13 11:37] VITALS: Wt 136.3 kg
[~2017-10-28 18:15] MED LIST changes: +METH4TAB66 PO
--- NOTE | 2017-10-28 18:17 | ER Report ---
History and Physical Time Seen By MD: 18:17 HPI/ROS CHIEF COMPLAINT: Painful lump right buttocks HISTORY OF PRESENT ILLNESS: 37-year-old female presents ambulatory to the ER complaining of pain in her right buttocks. She was seen by primary care yesterday and started on antibiotics. She notes the pain is gone worse. There is a circumscribed region on her right buttocks area. Patient notes no fever, chills or body aches. She notes increased pain at the site. REVIEW OF SYSTEMS: Respiratory: No cough, no dyspnea. Cardiovascular: No chest pain, no palpitations. Gastrointestinal: No vomiting, no abdominal pain. Musculoskeletal: No back pain. Allergies: Coded Allergies: cephalexin (Verified Allergy, Severe, ANAPHYLAXIS, 06/27/17) hydrocodone (Verified Allergy, Intermediate, Itching, 10/20/17) latex (Verified Allergy, Mild, ITCHING, 06/27/17) onion (Verified Allergy, Mild, ANAPHYLAXIS, 06/27/17) metformin (Verified Adverse Reaction, Intermediate, Myositis, 06/27/17) Home Meds Active Scripts Tramadol Hcl (TRAMADOL HCL) 50 Mg Tablet, 1 TAB PO Q6H Y for PAIN, #12 MG TAKE ONE TABLETS BY MOUTH EVERY SIX HOURS NEEDED Prov:GERONIMO ESPOSITO DO 10/28/17 Tizanidine Hcl (TIZANIDINE HCL) 2 Mg Tablet, 1 TAB PO DAILY, #30 TAB 0 Refills Prov:ZACHERY GOMEZ DNP, [facility]- 10/27/17 Amoxicillin/Pot Clav 875-125 Mg Tab (AUGMENTIN 875-125 TABLET) 1 Each Tablet, 1 TAB PO BID for 7 Days, #14 TAB 0 Refills Prov:ZACHERY GOMEZ DNP, [facility]- 10/27/17 Ondansetron (ZOFRAN ODT) 4 Mg Tab.rapdis, 4 MG PO Q6H Y for NAUSEA/VOMITING, # 20 TAB.KIM 0 Refills Prov:HARRIS WATSON MD 10/18/17 Fexofenadine Hcl (FARIHA ALLERGY) 180 Mg Tablet, 1 TAB PO QDAY, #90 TAB 3 Refills Prov:JOE JOLLEY MD 10/05/17 Levothyroxine Sodium (LEVOTHYROXINE SODIUM) 100 Mcg Tablet, 100 MCG PO DAILY, # 90 TAB 3 Refills Prov:JOE JOLLEY MD 09/06/17 Lisinopril (LISINOPRIL) 10 Mg Tablet, 10 MG PO QDAY, #90 TAB 3 Refills Prov:JOE JOLLEY MD 09/01/17 Meclizine Hcl (MECLIZINE HCL) 25 Mg Tablet, 1 TAB PO BID, #180 TAB 3 Refills Prov:JOE JOLLEY MD 07/07/17 Fluticasone Prop 50 Mcg Ns (FLONASE 50 MCG NS) 16 Gm [place].susp, 1 SPRAYS NS BID , #3 BOT 3 Refills Prov:JOE JOLLEY MD 01/20/17 Pantoprazole Sodium (PANTOPRAZOLE SODIUM) 40 Mg Tablet.dr, 1 TAB PO QDAY, #90 TAB 3 Refills Prov:JOE JOLLEY MD 01/20/17 Albuterol Sulfate 90 Mcg/Act (PROAIR HFA 90 MCG/ACT) 8.5 Gm Hfa.aer.ad, 1-2 PUFF IH 3-4XD, #1 INHALER 11 Refills Prov:JOE JOLLEY MD 11/01/16 Ranitidine Hcl (ZANTAC) 150 Mg Tablet, 1 TAB PO BID, #180 TAB 3 Refills Prov:JOE JOLLEY MD 10/17/16 Albuterol Sulfate 0.083% (ALBUTEROL SULFATE 0.083%) 2.5 Mg/3 Ml Vial.neb, 2.5 MG INH Q4-6H Y for WHEEZING, #25 INH 2 Refills Prov:RAYSHAWN ARMAS DO 06/15/16 Reported Medications Lurasidone Hcl (LATUDA) 20 Mg Tablet, 20 MG PO HS 10/18/17 Gabapentin (GABAPENTIN) 300 Mg Capsule, 1 CAP PO TID, CAPSULE 09/12/16 Epinephrine (EPIPEN 2-YUVAL) 0.3 Mg/0.3 Ml Pen.injctr, 0.3 MG IM PRN 09/12/16 Desvenlafaxine Succinate (PRISTIQ ER) 100 Mg Tabcr, 1 TAB PO DAILY 07/12/16 Levetiracetam (KEPPRA) 250 Mg Tablet, 1 TAB PO BID, TAB 02/29/16 Multivitamin (DAILY MULTIPLE VITAMIN) 1 Each Tablet, 1 EACH PO QDAY 01/23/16 Discontinued Scripts Hydrocodone Bit/Acetaminophen (HYDROCODON-ACETAMINOPHEN 5-325) 1 Each Tablet, 1 EACH PO Q4H Y for PAIN, #12 TAB 0 Refills Prov:HARRIS WATSON MD 10/18/17 Methylprednisolone (METHYLPREDNISOLONE) 4 Mg Tab.ds.pk, 4 MG PO DIRECTED, #1 PACK 0 Refills take the medrol dose pack as directed for itching. Prov:HAKEEM FIGUEROA [employer] 10/18/17 Reviewed Nurses Notes: Yes Old Medical Records Reviewed: Yes Hx Smoking: Yes Smoking Status: Current: Every Day Smoker Exposure to Second Hand Smoke?: No Hx Substance Use Disorder: No Hx Alcohol Use: Yes (RARE) Constitutional Vital Sign - Last 24 Hours 10/28/17 10/28/17 10/28/17 10/28/17 18:20 18:21 18:30 18:45 Temp 98.3 Pulse 112 103 103 Resp 20 B/P (MAP) 125/46 (72) 125/46 Pulse Ox 95 95 95 O2 Delivery Room Air 10/28/17 19:09 Resp 16 B/P (MAP) 124/76 (92) Pulse Ox 94 O2 Delivery Room Air Physical Exam General Appearance: The patient is alert, has no immediate need for airway protection and no current signs of toxicity. Vital signs stable, afebrile Eyes: Pupils equal and round no injection. Respiratory: Chest is non tender, lungs are clear to auscultation. Cardiac: regular rate and rhythm Gastrointestinal: Abdomen is soft and non tender, no masses, bowel sounds normal. Musculoskeletal: Neck: Neck is supple and non tender. Extremities have full range of motion and are non tender. Skin: Examination of the right buttocks reveals a erythematous nodule approximately 2-3 cm in diameter that is tender to palpation. It is not fluctuant. Do not think it's consistent with an abscess. I do not think incision and drainage is indicated at this point. DIFFERENTIAL DIAGNOSIS: After history and physical exam differential diagnosis was considered for cellulitis, abscess, ingrown hair, sebaceous cyst Medical Decision Making ED Course/Re-evaluation ED Course Patient was admitted to an examination room. H&P was done. The differential diagnoses was considered. Patient started on Augmentin by her primary care earlier today. She's primary issue today is pain. Patient will be given tramadol for pain relief. She is advised to take ibuprofen and apply hot compresses to the affected area. Follow-up with primary care if unimproved in 2 -3 days for consideration of incision and drainage. Decision to Disposition Date: Oct 28, 2017 Decision to Disposition Time: 18:45 Depart Departure Latest Vital Signs Vital Signs Date Time Temp Pulse Resp B/P (MAP) Pulse Ox O2 Delivery O2 Flow Rate FiO2 10/28/17 19:09 16 124/76 (92) 94 Room Air 10/28/17 18:45 103 10/28/17 18:21 98.3 Impression: Primary Impression: Cellulitis of right buttock Condition: Improved Disposition: HOME OR SELF-CARE Referrals: JOE JOLLEY MD (PCP) PHIL AGOSTO MD New Scripts Tramadol Hcl (TRAMADOL HCL) 50 Mg Tablet 1 TAB PO Q6H Y for PAIN, #12 MG TAKE ONE TABLETS BY MOUTH EVERY SIX HOURS NEEDED Prov: GERONIMO ESPOSITO DO 10/28/17 Patient Instructions: Cellulitis (ED) Additional Instructions: Continue warm compresses or hot soaks to treat your affected area Continue taking ibuprofen as an anti-inflammatory Follow-up with your primary care if unimproved in 2-[address] Agosto, general surgery for wound management might be helpful GERONIMO ESPOSITO DO Oct 28, 2017 18:17
[2017-10-28] MEDS ORDERED: TRAM-420 PO (18:52)
[2017-10-28] MEDS ORDERED: traMADol 50 MG TAB TH 2 TAB/BOTTLE PO ONE (18:55)
[2017-10-28 19:09] VITALS: BP 124/76
[2017-11-01] MEDS ORDERED: CLIN300C99 PO (11:24)
== END 2017-10-28 19:05 | disposition home or self-care (01) ==
LOC: ER 18:18
DX: L03.317 Cellulitis of buttock (principal)
CPT/HCPCS: 99283; C9399

== ENCOUNTER 2017-12-05 21:18 | Emergency (ER) | payer MEDICAID ==
[2016-07-13 11:37] VITALS: Wt 139.9 kg
[~2017-12-05 21:18] MED LIST changes: +CLIN300C99 PO; +IPRA3AMP10 IH; -IPRA3AMP21 IH; +TRAM-420 PO; -TRAZ-163 PO; +TRAZ100T31 PO
--- NOTE | 2017-12-05 21:21 | ER Report ---
History and Physical Time Seen By MD: 21:20 HPI/ROS CHIEF COMPLAINT: Chest pain HISTORY OF PRESENT ILLNESS: 37-year-old female presents with sharp substernal chest pain since 6 PM. She came on right after eating. Patient notes increased pain with deep inspiration. Patient describes 6/10 pain. She reports eating spicy food. She denies GERD. She denies shortness of breath or fever. She denies recent URI or cough. REVIEW OF SYSTEMS: Respiratory: No cough, no dyspnea. Cardiovascular: As above Gastrointestinal: No vomiting, no abdominal pain. Musculoskeletal: No back pain. Allergies: Coded Allergies: cephalexin (Verified Allergy, Severe, ANAPHYLAXIS, 12/05/17) hydrocodone (Verified Allergy, Intermediate, Itching, 12/05/17) latex (Verified Allergy, Mild, ITCHING, 12/05/17) onion (Verified Allergy, Mild, ANAPHYLAXIS, 12/05/17) metformin (Verified Adverse Reaction, Intermediate, Myositis, 12/05/17) Home Meds Active Scripts Tizanidine Hcl (TIZANIDINE HCL) 2 Mg Tablet, 1 TAB PO DAILY, #30 TAB 0 Refills Prov:JOE JOLLEY MD 11/21/17 Hydroxyzine Hcl (HYDROXYZINE HCL) 25 Mg Tablet, 25 MG PO TID for itching, #30 TAB Prov:JOE JOLLEY MD 11/03/17 Ranitidine Hcl (ZANTAC) 150 Mg Tablet, 1 TAB PO BID, #180 TAB 3 Refills Prov:JOE JOLLEY MD 11/03/17 Epinephrine (EPIPEN 2-YUVAL) 0.3 Mg/0.3 Ml Pen.injctr, 0.3 MG IM PRN, #2 EACH 0 Refills Prov:JOE JOLLEY MD 11/03/17 Ondansetron (ZOFRAN ODT) 4 Mg Tab.rapdis, 4 MG PO Q6H Y for NAUSEA/VOMITING, # 20 TAB.KIM 0 Refills Prov:HARRIS WATSON MD 10/18/17 Fexofenadine Hcl (FARIHA ALLERGY) 180 Mg Tablet, 1 TAB PO QDAY, #90 TAB 3 Refills Prov:JOE JOLLEY MD 10/05/17 Levothyroxine Sodium (LEVOTHYROXINE SODIUM) 100 Mcg Tablet, 100 MCG PO DAILY, # 90 TAB 3 Refills Prov:JOE JOLLEY MD 09/06/17 Lisinopril (LISINOPRIL) 10 Mg Tablet, 10 MG PO QDAY, #90 TAB 3 Refills Prov:JOE JOLLEY MD 09/01/17 Meclizine Hcl (MECLIZINE HCL) 25 Mg Tablet, 1 TAB PO BID, #180 TAB 3 Refills Prov:JOE JOLLEY MD 07/07/17 Fluticasone Prop 50 Mcg Ns (FLONASE 50 MCG NS) 16 Gm [place].susp, 1 SPRAYS NS BID , #3 BOT 3 Refills Prov:JOE JOLLEY MD 01/20/17 Pantoprazole Sodium (PANTOPRAZOLE SODIUM) 40 Mg Tablet.dr, 1 TAB PO QDAY, #90 TAB 3 Refills Prov:JOE JOLLEY MD 01/20/17 Albuterol Sulfate 90 Mcg/Act (PROAIR HFA 90 MCG/ACT) 8.5 Gm Hfa.aer.ad, 1-2 PUFF IH 3-4XD, #1 INHALER 11 Refills Prov:JOE JOLLEY MD 11/01/16 Albuterol Sulfate 0.083% (ALBUTEROL SULFATE 0.083%) 2.5 Mg/3 Ml Vial.neb, 2.5 MG INH Q4-6H Y for WHEEZING, #25 INH 2 Refills Prov:RAYSHAWN ARMAS DO 06/15/16 Reported Medications Lurasidone Hcl (LATUDA) 20 Mg Tablet, 20 MG PO HS 10/18/17 Gabapentin (GABAPENTIN) 300 Mg Capsule, 1 CAP PO TID, CAPSULE 09/12/16 Desvenlafaxine Succinate (PRISTIQ ER) 100 Mg Tabcr, 1 TAB PO DAILY 07/12/16 Levetiracetam (KEPPRA) 250 Mg Tablet, 1 TAB PO BID, TAB 02/29/16 Multivitamin (DAILY MULTIPLE VITAMIN) 1 Each Tablet, 1 EACH PO QDAY 01/23/16 Discontinued Scripts Clindamycin Hcl (CLINDAMYCIN HCL) 300 Mg Capsule, 1 CAP PO TID for 10 Days, #30 CAPSULE 0 Refills Prov:ZACHERY GOMEZ DNP, [employer] 11/01/17 Tramadol Hcl (TRAMADOL HCL) 50 Mg Tablet, 1 TAB PO Q6H Y for PAIN, #12 MG TAKE ONE TABLETS BY MOUTH EVERY SIX HOURS NEEDED Prov:GERONIMO ESPOSITO DO 10/28/17 Past Medical/Surgical History Past Medical History Neurologic: Reports hx of: migraine seizures (Pt under care of Dr. Reinoso, 2017 , sees doc yearly.) Cardiovascular: Reports hx of: hyperlipidemia hypertension Respiratory: Reports hx of: sleep apnea other respiratory history (restrictive lung disease) Gastrointestinal: Reports hx of: GERD irritable bowel syndrome Psychiatric: Reports hx of: bipolar disorder depression Endocrine: Reports hx of: hypothyroidism other endocrine history (prediabetes 2016) Past Surgical History Gynecologic: Reports hx of: delivery (2004) tubal ligation (2004) Reviewed Nurses Notes: Yes Old Medical Records Reviewed: Yes Hx Smoking: Yes Smoking Status: Current: Every Day Smoker Exposure to Second Hand Smoke?: No Hx Substance Use Disorder: No Hx Alcohol Use: Yes (RARE) Constitutional Vital Sign - Last 24 Hours 12/05/17 12/05/17 12/05/17 12/05/17 21:18 21:24 21:24 21:30 Temp 97.8 Pulse ??? 91 Resp 17 B/P (MAP) 129/70 (89) 129/70 116/40 (65) Pulse Ox 95 O2 Delivery Room Air 12/05/17 12/05/17 12/05/17 12/05/17 21:48 22:00 22:18 22:30 Pulse 85 88 B/P (MAP) 126/68 (87) 114/63 (80) Pulse Ox 94 94 Physical Exam General Appearance: The patient is alert, has no immediate need for airway protection and no current signs of toxicity. Vital signs stable, afebrile, pulse ox normal HEENT: Pupils equal and round no injection. TMs normal Oropharynx without redness or exudate Respiratory: Chest is non tender, lungs are clear to auscultation. Positive chest wall tenderness Cardiac: regular rate and rhythm Gastrointestinal: Abdomen is soft and non tender, no masses, bowel sounds normal. Musculoskeletal: Neck: Neck is supple and non tender. Extremities have full range of motion and are non tender. Skin: No rashes or lesions. DIFFERENTIAL DIAGNOSIS: After history and physical exam differential diagnosis was considered for chest pain including but not limited to myocardial ischemia, pericarditis pulmonary embolus, chest wall pain, pleural inflammation and pulmonary infectious causes. Medical Decision Making EKG/Imaging EKG Interpretation 12 lead EK Rhythm: normal sinus rhythm [place]: normal QRS: A complete record branch block pattern ST segments:, Comparison to previous EKG dated 12/30/69, no significant change Imaging X-ray: Two-view chest x-ray was obtained. I viewed the images myself on the PACS system. My interpretation of the images is: No infiltrate, no effusion, normal mediastinum, comparison to previous x-ray / at 17, no significant change. The radiologist interpretation had no clinically significant variation from this interpretation. ED Course/Re-evaluation ED Course Patient was admitted to an examination room. H&P was done. The differential diagnoses was considered. On clinical examination. Patient has chest wall tenderness aggravated by deep inspiration. Patient was treated with ibuprofen, tramadol and a GI cocktail. EKG and chest x-ray were unremarkable. Patient advised ibuprofen 6 and her milligrams 3 times daily. Decision to Disposition Date: Dec 05, 2017 Decision to Disposition Time: 22:09 Depart Departure Latest Vital Signs Vital Signs Date Time Temp Pulse Resp B/P (MAP) Pulse Ox O2 Delivery O2 Flow Rate FiO2 12/05/17 22:30 114/63 (80) 12/05/17 22:18 88 94 12/05/17 21:24 97.8 17 Room Air Impression: Primary Impression: Chest wall pain Condition: Improved Disposition: HOME OR SELF-CARE Referrals: JOE JOLLEY MD (PCP) Patient Instructions: Chest Wall Pain (ED) Additional Instructions: Take ibuprofen 200 mg 3 tablets 3 times a day with food Apply heating pad to your chest wall Follow-up with primary care if unimproved in 3-5 days. GERONIMO ESPOSITO DO Dec 05, 2017 21:21
[2017-12-05] MEDS ORDERED: traMADol 50 MG TAB PO ONE (21:35)
[2017-12-05] MEDS ORDERED: IBUPROFEN 600 MG TAB PO ONE (21:35)
[2017-12-05] MEDS ORDERED: LIDOCAINE 2% VISC SLN 15ML UDC PO ONE (21:35)
[2017-12-05] MEDS ORDERED: MAG HYD/AL HYD/SIMETH 30ML UDC PO ONE (21:35)
[2017-12-05] MEDS ORDERED: LIDOCAINE 2% VISC SLN 15ML UDC ONE (21:44)
--- NOTE | 2017-12-05 21:50 | EKG ---
FACILITY: [facility] PATIENT NAME: RANDY HEREDIA : [id number] MR: [id number] V: [id number] EXAM DATE: ORDERING PHYSICIAN: GERONIMO ESPOSITO TECHNOLOGIST: Test Reason : sharp SSCP Blood Pressure : / mmHG Vent. Rate : 078 BPM Atrial Rate : 078 BPM P-R Int : 138 ms QRS Dur : 094 ms QT Int : 386 ms P-R-T Axes : 040 060 000 degrees QTc Int : 440 ms Normal sinus rhythm Incomplete right bundle branch block Borderline ECG When compared with ECG of 30-DEC-2016 21:39, Nonspecific T wave abnormality no longer evident in Anterolateral leads Confirmed by PHIL CRAWLEY ([id number]) on 12/06/2017 11:26:28 AM Referred By: Confirmed By:PHIL CRAWLEY
[2017-12-05 22:30] VITALS: BP 114/63
--- NOTE | 2017-12-05 22:49 | RADIOLOGY IMAGING REPORT ---
FACILITY: [facility] PATIENT NAME: Debi Sanchez : 1980 MR: [id number] V: [id number] EXAM DATE: ORDERING PHYSICIAN: GERONIMO ESPOSITO TECHNOLOGIST: Location: [facility] Patient: Debi Sanchez : 1980 Visit/Account:[id number] Date of Sevice: 12/05/2017 CHEST PA AND LAT COMPARISONS: 2 view chest dated August 27, 2016 ADDITIONAL PERTINENT HISTORY: Sharp chest pain FINDINGS: Cardiomediastinal silhouette: Negative. Pulmonary vasculature: Negative. Lung reid: Negative. Pleural spaces: Negative. Osseous structures: Negative. Surrounding soft tissues: Negative IMPRESSION: No evidence of acute cardiopulmonary disease. Report Dictated By: Juan Son MD at 12/05/2017 10:42 PM Report E-Signed By: Juan Son MD at 12/05/2017 10:43 PM WSN:[id number]
== END 2017-12-05 22:35 | disposition home or self-care (01) ==
LOC: ER 21:31
DX: R07.89 Other chest pain (principal)
CPT/HCPCS: 71046; 93005; 99284

== ENCOUNTER 2017-12-18 16:43 | Emergency (ER) | payer MEDICAID ==
[2016-07-13 11:37] VITALS: Wt 139.9 kg
[2017-12-18] MEDS ORDERED: ANAPHYLAXIS KIT 1 EA ONE (16:47)
[2017-12-18] MEDS ORDERED: diphenhydrAMINE 50 MG/ML VIAL IVP ONE (17:00)
[2017-12-18] MEDS ORDERED: methylPREDNIS SUCC 125 MG/2ML IVP ONE (17:00)
[2017-12-18] MEDS ORDERED: NS(*) 0.9% 1000 ML BAG 1,000 ML IV ONE (17:00)
[2017-12-18] MEDS ORDERED: ALBUTEROL/IPRATROPIUM 3 ML NEB NEB ONE (17:00)
[2017-12-18] MEDS ORDERED: FAMOTIDINE(*) 20MG/50ML PREMIX 50 ML IVPB ONE (17:00)
--- NOTE | 2017-12-18 17:02 | ER Report ---
History and Physical Time Seen By MD: 16:50 Hx. of Stated Complaint: ATE ONIONS AND NOW LIPS ARE TINGLING AND PT FEELS SOB, GAVE HERSELF AN EPI INJECTION HPI/ROS CHIEF COMPLAINT: Allergic reaction HISTORY OF PRESENT ILLNESS: This is a 37-year-old female presents to the emergency department for allergic reaction. Patient states that about 30 minutes prior to arrival she was eating at a local restaurant given a contact with some onions again to develop some wheezing and shortness of breath then progressed into increased pressure around her neck at which time she decided the take her EpiPen. EpiPen was delivered about 10 minutes prior to arrival. Patient also states she took about 425 mg Benadryl prior to arrival. Patient does have a known history of allergic reactions to onions, she states she didn't come into contact with the onion. Patient denies nausea or vomiting. No fevers or chills. No headaches. No stridorous lung sounds on my exam. REVIEW OF SYSTEMS: Constitutional: No fever, no chills. Eyes: No discharge. ENT: No sore throat. Cardiovascular: No chest pain, no palpitations. Respiratory: As above. Gastrointestinal: No abdominal pain, no vomiting. Genitourinary: No hematuria. Musculoskeletal: No back pain. Skin: No rashes. Neurological: No headache. Allergies: Coded Allergies: cephalexin (Verified Allergy, Severe, ANAPHYLAXIS, 12/05/17) hydrocodone (Verified Allergy, Intermediate, Itching, 12/05/17) latex (Verified Allergy, Mild, ITCHING, 12/05/17) onion (Verified Allergy, Mild, ANAPHYLAXIS, 12/05/17) metformin (Verified Adverse Reaction, Intermediate, Myositis, 12/05/17) Home Meds Active Scripts Prednisone (PREDNISONE) 20 Mg Tablet, 20 MG PO BID, #10 TAB 0 Refills Prov:HAKEEM FIGUEROA [employer] 12/18/17 Epinephrine (EPIPEN 2-YUVAL) 0.3 Mg/0.3 Ml Pen.injctr, 0.3 MG IM PRN, #1 PACK 0 Refills Prov:HAKEEM FIGUEROA [employer] 12/18/17 Tizanidine Hcl (TIZANIDINE HCL) 2 Mg Tablet, 1 TAB PO DAILY, #30 TAB 0 Refills Prov:JOE JOLLEY MD 11/21/17 Ranitidine Hcl (ZANTAC) 150 Mg Tablet, 1 TAB PO BID, #180 TAB 3 Refills Prov:JOE JOLLEY MD 11/03/17 Epinephrine (EPIPEN 2-YUVAL) 0.3 Mg/0.3 Ml Pen.injctr, 0.3 MG IM PRN, #2 EACH 0 Refills Prov:JOE JOLLEY MD 11/03/17 Ondansetron (ZOFRAN ODT) 4 Mg Tab.rapdis, 4 MG PO Q6H PRN for NAUSEA/VOMITING, #20 TAB.KIM 0 Refills Prov:HARRIS WATSON MD 10/18/17 Fexofenadine Hcl (FARIHA ALLERGY) 180 Mg Tablet, 1 TAB PO QDAY, #90 TAB 3 Refills Prov:JOE JOLLEY MD 10/05/17 Levothyroxine Sodium (LEVOTHYROXINE SODIUM) 100 Mcg Tablet, 100 MCG PO DAILY, #90 TAB 3 Refills Prov:JOE JOLLEY MD 09/06/17 Lisinopril (LISINOPRIL) 10 Mg Tablet, 10 MG PO QDAY, #90 TAB 3 Refills Prov:JOE JOLLEY MD 09/01/17 Meclizine Hcl (MECLIZINE HCL) 25 Mg Tablet, 1 TAB PO BID, #180 TAB 3 Refills Prov:JOE JOLLEY MD 07/07/17 Fluticasone Prop 50 Mcg Ns (FLONASE 50 MCG NS) 16 Gm [place].susp, 1 SPRAYS NS BID, #3 BOT 3 Refills Prov:JOE JOLLEY MD 01/20/17 Pantoprazole Sodium (PANTOPRAZOLE SODIUM) 40 Mg Tablet.dr, 1 TAB PO QDAY, #90 TAB 3 Refills Prov:JOE JOLLEY MD 01/20/17 Albuterol Sulfate 90 Mcg/Act (PROAIR HFA 90 MCG/ACT) 8.5 Gm Hfa.aer.ad, 1-2 PUFF IH 3-4XD, #1 INHALER 11 Refills Prov:JOE JOLLEY MD 11/01/16 Albuterol Sulfate 0.083% (ALBUTEROL SULFATE 0.083%) 2.5 Mg/3 Ml Vial.neb, 2.5 MG INH Q4-6H PRN for WHEEZING, #25 INH 2 Refills Prov:RAYSHAWN ARMAS V DO 06/15/16 Reported Medications Lurasidone Hcl (LATUDA) 20 Mg Tablet, 20 MG PO HS 10/18/17 Gabapentin (GABAPENTIN) 300 Mg Capsule, 1 CAP PO TID, CAPSULE 09/12/16 Desvenlafaxine Succinate (PRISTIQ ER) 100 Mg Tabcr, 1 TAB PO DAILY 07/12/16 Levetiracetam (KEPPRA) 250 Mg Tablet, 1 TAB PO BID, TAB 02/29/16 Multivitamin (DAILY MULTIPLE VITAMIN) 1 Each Tablet, 1 EACH PO QDAY 01/23/16 Discontinued Scripts Hydroxyzine Hcl (HYDROXYZINE HCL) 25 Mg Tablet, 25 MG PO TID for itching, #30 TAB Prov:JOE JOLLEY MD 11/03/17 Past Medical/Surgical History The patient has a past medical and surgical history of seizures, migraines, hypertension, hypercholesterolemia, asthma, emphysema, pneumonia, chronic bronchitis, rescue inhaler, GERD, urinary tract infections, ovarian cysts, arthritis, right ankle fracture, chronic back pain, hayfever, wears reading glasses, prediabetic, eczema, bipolar, anxiety, . Tubal ligation. Allergic reactions. "Silent seizures with aura". Reviewed Nurses Notes: Yes Hx Smoking: Yes Smoking Status: Current: Every Day Smoker Exposure to Second Hand Smoke?: No Hx Substance Use Disorder: No Hx Alcohol Use: Yes (RARE) Constitutional Vital Sign - Last 24 Hours 12/18/17 12/18/17 12/18/17 12/18/17 16:46 16:48 17:00 17:13 Temp 98.4 Pulse 98 88 Resp 22 18 B/P (MAP) 122/85 (97) 122/85 131/75 (93) Pulse Ox 95 100 O2 Delivery Room Air 12/18/17 12/18/17 12/18/17 12/18/17 17:19 17:30 17:43 18:00 Pulse 92 117 Resp 22 B/P (MAP) 128/75 (92) 125/73 (90) Pulse Ox 92 12/18/17 12/18/17 12/18/17 12/18/17 18:13 18:30 18:30 19:00 Pulse 92 84 92 Resp 41 14 27 B/P (MAP) 124/65 (84) 124/65 (84) Pulse Ox 93 94 95 12/18/17 12/18/17 12/18/17 12/18/17 19:23 19:28 19:28 19:33 Pulse 91 95 95 Resp 10 23 23 B/P (MAP) 140/75 (96) Pulse Ox 94 95 95 12/18/17 12/18/17 12/18/17 12/18/17 19:33 19:58 19:58 20:00 Pulse 91 91 Resp 16 16 B/P (MAP) 140/75 (96) 130/66 (87) Pulse Ox 94 94 12/18/17 12/18/17 20:00 20:16 Pulse 97 Resp 13 B/P (MAP) 130/66 (87) Pulse Ox 94 Physical Exam General Appearance: The patient is alert, has no immediate need for airway protection and no signs of toxicity, anxious and tearful. Eyes: Pupils equal and round no pallor or injection. ENT, Mouth: Mucous membranes are moist. No swelling of the tongue, mild edema to the lips, mild erythema to the posterior oropharynx. Respiratory: Lungs are diminished throughout, slight expiratory wheeze in the upper reid. Cardiovascular: Regular rate and rhythm. Gastrointestinal: Abdomen is soft and non tender, no masses, bowel sounds tanja l. Neurological: Alert and oriented 4. Moving all care is. Following all commands. No focal neuro deficits. Skin: Warm and dry, no rashes. Musculoskeletal: Neck is supple non tender. Extremities are nontender, nonswollen and have full range of motion. DIFFERENTIAL DIAGNOSIS: After history and physical exam differential diagnosis was considered for anaphylactic reaction. Medical Decision Making Data Points Result Diagram: 12/18/17 1825 12/18/17 1825 Laboratory Hematology Test 12/18/17 18:25 Red Blood Count 4.44 M/uL (4.17-5.56) Mean Corpuscular Volume 84.6 fL (80.0-96.0) Mean Corpuscular Hemoglobin 28.6 pg (26.0-33.0) Mean Corpuscular Hemoglobin Concent 33.8 g/dL (32.0-36.0) Red Cell Distribution Width 18.7 % (11.5-14.5) Mean Platelet Volume 7.5 fL (7.2-11.1) Neutrophils (%) (Auto) 64.1 % (39.4-72.5) Lymphocytes (%) (Auto) 27.8 % (17.6-49.6) Monocytes (%) (Auto) 6.0 % (4.1-12.4) Eosinophils (%) (Auto) 1.6 % (0.4-6.7) Basophils (%) (Auto) 0.5 % (0.3-1.4) Nucleated RBC Relative Count (auto) 0.1 /100WBC Neutrophils # (Auto) 6.5 K/uL (2.0-7.4) Lymphocytes # (Auto) 2.8 K/uL (1.3-3.6) Monocytes # (Auto) 0.6 K/uL (0.3-1.0) Eosinophils # (Auto) 0.2 K/uL (0.0-0.5) Basophils # (Auto) 0.1 K/uL (0.0-0.1) Nucleated RBC Absolute Count (auto) 0.01 K/uL Sodium Level 138 mmol/L (137-145) Potassium Level 4.3 mmol/L (3.5-5.0) Chloride Level 102 mmol/L (98-107) Carbon Dioxide Level 21 mmol/L (22-31) Blood Urea Nitrogen 6 mg/dl (7-18) Creatinine 0.60 mg/dl (0.52-1.04) Glomerular Filtration Rate Calc > 60.0 Random Glucose 247 mg/dl (75-110) Calcium Level 8.8 mg/dl (8.4-10.2) Total Bilirubin 0.3 mg/dl (0.2-1.3) Aspartate Amino Transf (AST/SGOT) 73 U/L (0-35) Alanine Aminotransferase (ALT/SGPT) 58 U/L (0-56) Alkaline Phosphatase 114 U/L (0-126) Total Protein 6.6 g/dl (6.3-8.2) Albumin 4.0 g/dl (3.5-5.0) Chemistry Test 12/18/17 18:25 White Blood Count 10.2 k/uL (4.5-11.0) Red Blood Count 4.44 M/uL (4.17-5.56) Hemoglobin 12.7 g/dL (12.0-16.0) Hematocrit 37.6 % (34.0-47.0) Mean Corpuscular Volume 84.6 fL (80.0-96.0) Mean Corpuscular Hemoglobin 28.6 pg (26.0-33.0) Mean Corpuscular Hemoglobin Concent 33.8 g/dL (32.0-36.0) Red Cell Distribution Width 18.7 % (11.5-14.5) Platelet Count 377 K/uL (150-450) Mean Platelet Volume 7.5 fL (7.2-11.1) Neutrophils (%) (Auto) 64.1 % (39.4-72.5) Lymphocytes (%) (Auto) 27.8 % (17.6-49.6) Monocytes (%) (Auto) 6.0 % (4.1-12.4) Eosinophils (%) (Auto) 1.6 % (0.4-6.7) Basophils (%) (Auto) 0.5 % (0.3-1.4) Nucleated RBC Relative Count (auto) 0.1 /100WBC Neutrophils # (Auto) 6.5 K/uL (2.0-7.4) Lymphocytes # (Auto) 2.8 K/uL (1.3-3.6) Monocytes # (Auto) 0.6 K/uL (0.3-1.0) Eosinophils # (Auto) 0.2 K/uL (0.0-0.5) Basophils # (Auto) 0.1 K/uL (0.0-0.1) Nucleated RBC Absolute Count (auto) 0.01 K/uL Glomerular Filtration Rate Calc > 60.0 Calcium Level 8.8 mg/dl (8.4-10.2) Total Bilirubin 0.3 mg/dl (0.2-1.3) Aspartate Amino Transf (AST/SGOT) 73 U/L (0-35) Alanine Aminotransferase (ALT/SGPT) 58 U/L (0-56) Alkaline Phosphatase 114 U/L (0-126) Total Protein 6.6 g/dl (6.3-8.2) Albumin 4.0 g/dl (3.5-5.0) ED Course/Re-evaluation Clinical Indication for ER IV: Hydration, IV Access ED Course The patient was admitted to room. A history physical were obtained. Differential diagnoses were considered. An IV was started. A CBC, CMP were obtained. Laboratory studies unremarkable, with the exception of the blood sugar which is 247 I did review this with the patient. A 1 L normal saline bolus was given. 20 mg IV famotidine, 25 mg IV Benadryl, 125 mg Solu-Medrol were given. Patient did have resolution of her allergic reaction, states she is feeling better however when I was in to reassess her the 3rd time she states that she had "a silent seizure with an aura" as noted below. Patient does have a known history of "silent seizures with aura" she also takes Keppra. After approximate another hour, the patient states she is feeling much better, I did go ahead and discharge the patient home. Patient had no other concerns at this time. Patient states she is feeling much better and will follow-up with her primary care provider. A prescription for prednisone and EpiPen were sent with the patient. 12/18/2017 5:31:57 pm the patient does appear to be improving, the swelling around the lips begun to jahaira however the patient still does appear to be slightly anxious. No audible wheezing however the lung sounds are still slightly diminished. No stridor. 12/18/2017 6:41:43 pm patient laying on her left side, more relaxed and less anxious and she states that she feels much better. 12/18/2017 7:35:31 pm patient states that she had to "auras, which are silent seizures", patient does take Keppra does have a known "seizure disorder", patient states she was upset, but is feeling a little bit better at this time. While I was in talking with the patient there were no signs of seizure activity, patient was interacting and conversing well. The patient's allergic reaction has subsided, no swelling or shortness of breath. 12/18/2017 8:16:14 pm patient states she is feeling much better. Patient will be discharged home. Decision to Disposition Date: Dec 18, 2017 Decision to Disposition Time: 20:16 Depart Departure Latest Vital Signs Vital Signs Date Time Temp Pulse Resp B/P (MAP) Pulse Ox O2 Delivery O2 Flow Rate FiO2 12/18/17 20:16 97 13 94 12/18/17 20:00 130/66 (87) 12/18/17 16:48 98.4 Room Air Impression: Primary Impression: Allergic reaction Condition: Improved Disposition: HOME OR SELF-CARE Referrals: JOE JOLLEY MD (PCP) New Scripts Prednisone (PREDNISONE) 20 Mg Tablet 20 MG PO BID, #10 TAB 0 Refills Prov: HAKEEM FIGUEROA [facility] 12/18/17 Epinephrine (EPIPEN 2-YUVAL) 0.3 Mg/0.3 Ml Pen.injctr 0.3 MG IM PRN, #1 PACK 0 Refills Prov: HAKEEM FIGUEROA [facility] 12/18/17 Patient Instructions: Anaphylaxis (ED), General Allergic Reaction (ED) Additional Instructions: Drink plenty of water. Get plenty of rest. Take the short burst of steroids. Use your EpiPen as needed, but you must come to the ED if you use it. Take Benadryl as needed for allergic reaction. Follow up with your PCP in 1-2 weeks for reevaluation. Return to the ED for any other concerns or worsening symptoms. Problem Qualifiers Primary Impression: Allergic reaction Encounter type: initial encounter Qualified Codes: T78.40XA - Allergy, unspecified, initial encounter HAKEEM FIGUEROA [facility] Dec 18, 2017 17:03
[2017-12-18 18:35] LABS: PLATELET COUNT, AUTOMATED 377 K/uL (150-450)
[2017-12-18] MEDS ORDERED: EPIN0.3P15 IM (18:44)
[2017-12-18] MEDS ORDERED: PRED20TA6 PO (18:44)
[2017-12-18 20:00] VITALS: BP 130/66
[2017-12-20] MEDS ORDERED: TIZA-1 PO (09:54)
== END 2017-12-18 20:22 | disposition home or self-care (01) ==
LOC: ER 16:50
DX: T78.1XXA Other adverse food reactions, not elsewhere classified, initial encounter (principal)
CPT/HCPCS: 85025; 94640; 96365; 96375; 99284; J1200; J2930; J3490; J7620; 82040; 82247; 82310; 82374; 82435; 82565; 82947; 84075; 84132; 84155; 84295; 84450; 84460; 84520

== ENCOUNTER → 2018-03-23 | Outpatient (CLI) | payer MEDICAID ==
[2016-07-13 11:37] VITALS: BMI 54.4
[~2018-03-23] MED LIST changes: +FERR240T2 PO; -FERR240T23 PO; +FLU60SYR36 IM; -HYDR-4309 PO; +HYDR-653 PO
== END ==
LOC: LAB 11:44
PROVIDERS: ATTEND Emergency Medicine
DX: R73.03 Prediabetes (principal); R94.5 Abnormal results of liver function studies; Z72.9 Problem related to lifestyle, unspecified
CPT/HCPCS: 36415; 82040; 82247; 82248; 83036; 84075; 84155; 84450; 84460; 86703

== ENCOUNTER → 2018-05-07 | Outpatient (CLI) | payer MEDICAID ==
[2016-07-13 11:37] VITALS: BMI 54.4
[~2018-05-07] MED LIST changes: -GABA-503 PO; +GABA-533 PO; +LISI20TA29 PO
== END ==
LOC: LAB 10:03
PROVIDERS: ATTEND Emergency Medicine
DX: E83.52 Hypercalcemia (principal); I10 Essential (primary) hypertension
CPT/HCPCS: 36415; 82310; 82374; 82435; 82565; 82947; 83970; 84132; 84295; 84520

== ENCOUNTER 2018-08-12 18:03 | Emergency (ER) | payer MEDICAID ==
[2016-07-13 11:37] VITALS: Wt 131.5 kg
--- NOTE | 2018-08-12 18:16 | ER Report ---
History and Physical Time Seen By MD: 18:15 Hx. of Stated Complaint: PATIENT REPORTS SMALL LUMPS UNDER EACH ARMPIT. NOTICED THEM LAST NIGHT AND GOT WORSE TODAY. PATIENT HAS HISTORY OF STAPH INFECTIONS IN THE AREAS IN 2012 AND IT FEELS THE SAME HPI/ROS CHIEF COMPLAINT: Lumps in bilateral underarms HISTORY OF PRESENT ILLNESS: 38-year-old female patient presents to emergency room with complaint of lumps in bilateral upper arms. Patient states that she does the one in the right underarm yesterday. She states that she has had continued pain. She states that today her mother noticed one in the left underarm and she states that one seems to hurt the most today. Patient denies having any fevers, chills, nausea, vomiting or diarrhea. Patient states she does have a history of staph infection in both her underarms. Patient states she is not taking any medication for this. Allergies: Coded Allergies: cephalexin (Verified Allergy, Severe, ANAPHYLAXIS, 12/05/17) hydrocodone (Verified Allergy, Intermediate, Itching, 12/05/17) latex (Verified Allergy, Mild, ITCHING, 12/05/17) onion (Verified Allergy, Mild, ANAPHYLAXIS, 12/05/17) metformin (Verified Adverse Reaction, Intermediate, Myositis, 12/05/17) Home Meds Active Scripts Clindamycin Hcl (CLINDAMYCIN HCL) 300 Mg Capsule, 300 MG PO Q6H, #38 CAPSULE Prov:IZZY UNDERWOOD [employer] 08/12/18 Meclizine Hcl (MECLIZINE HCL) 25 Mg Tablet, 1 TAB PO BID, #180 TAB 3 Refills Prov:JOE CARSON MD 07/30/18 Tizanidine Hcl (TIZANIDINE HCL) 2 Mg Tablet, 1 TAB PO DAILY, #90 TAB 3 Refills Prov:JOE CARSON MD 06/22/18 Lisinopril (LISINOPRIL) 20 Mg Tablet, 20 MG PO QDAY, #90 TAB 3 Refills Prov:JOE CARSON MD 05/07/18 Epinephrine (EPIPEN 2-YUVAL) 0.3 Mg/0.3 Ml Pen.injctr, 0.3 MG IM PRN, #1 PACK 0 Refills Prov:HAKEEM FIGUEROA [employer] 12/18/17 Ranitidine Hcl (ZANTAC) 150 Mg Tablet, 1 TAB PO BID, #180 TAB 3 Refills Prov:JOE CARSON MD 11/03/17 Epinephrine (EPIPEN 2-YUVAL) 0.3 Mg/0.3 Ml Pen.injctr, 0.3 MG IM PRN, #2 EACH 0 Refills Prov:JOE CARSON MD 11/03/17 Ondansetron (ZOFRAN ODT) 4 Mg Tab.rapdis, 4 MG PO Q6H PRN for NAUSEA/VOMITING, #20 TAB.KIM 0 Refills Prov:HARRIS WATSON MD 10/18/17 Fexofenadine Hcl (FARIHA ALLERGY) 180 Mg Tablet, 1 TAB PO QDAY, #90 TAB 3 Refills Prov:JOE CARSON MD 10/05/17 Levothyroxine Sodium (LEVOTHYROXINE SODIUM) 100 Mcg Tablet, 100 MCG PO DAILY, #90 TAB 3 Refills Prov:JOE CARSON MD 09/06/17 Fluticasone Prop 50 Mcg Ns (FLONASE 50 MCG NS) 16 Gm [place].susp, 1 SPRAYS NS BID, #3 BOT 3 Refills Prov:JOE CARSON MD 01/20/17 Albuterol Sulfate 90 Mcg/Act (PROAIR HFA 90 MCG/ACT) 8.5 Gm Hfa.aer.ad, 1-2 PUFF IH 3-4XD, #1 INHALER 11 Refills Prov:JOE CARSON MD 11/01/16 Albuterol Sulfate 0.083% (ALBUTEROL SULFATE 0.083%) 2.5 Mg/3 Ml Vial.neb, 2.5 MG INH Q4-6H PRN for WHEEZING, #25 INH 2 Refills Prov:RAYSHAWN ARMAS DO 06/15/16 Reported Medications Lurasidone Hcl (LATUDA) 20 Mg Tablet, 20 MG PO HS 10/18/17 Gabapentin (GABAPENTIN) 300 Mg Capsule, 1 CAP PO TID, CAPSULE 09/12/16 Desvenlafaxine Succinate (PRISTIQ ER) 100 Mg Tabcr, 1 TAB PO DAILY 07/12/16 Levetiracetam (KEPPRA) 250 Mg Tablet, 1 TAB PO BID, TAB 02/29/16 Multivitamin (DAILY MULTIPLE VITAMIN) 1 Each Tablet, 1 EACH PO QDAY 10/1/16 Past Medical/Surgical History Patient has a past medical history of seizures, migraines, congestive heart failure, hypertension, hyperlipidemia, emphysema, pneumonia, COPD, abdominal pain, reflux, frequent UTI, arthritis, right ankle fracture, right toe fracture, chronic back pain, diabetes, hypothyroidism, eczema, abscess in bilateral underarms, alcohol use, bipolar. Patient has surgical history of , tubal ligation. Patient has a family medical history of cancer, diabetes, depression. Reviewed Nurses Notes: Yes Hx Smoking: Yes Smoking Status: Current: Every Day Smoker Exposure to Second Hand Smoke?: No Hx Substance Use Disorder: No Hx Alcohol Use: Yes (RARE) Constitutional Vital Sign - Last 24 Hours 08/12/18 18:07 Temp 98.3 Pulse 99 Resp 16 B/P (MAP) 142/79 Pulse Ox 94 O2 Delivery Room Air Physical Exam General appearance: Alert no distress. Respiratory: Chest is non tender, lungs are clear to auscultation. Cardiac: Regular rate and rhythm. Skin: Patient has 2 small bumps that are palpable under her bilateral arms, there is no erythema, there is no obvious swelling noted. DIFFERENTIAL DIAGNOSIS: After history and physical exam differential diagnosis was considered for cellulitis, abscess. Medical Decision Making ED Course/Re-evaluation ED Course Patient was admitted to examine, history and physical were obtained. Differ ential diagnoses were considered. On examination lungs are clear, heart is regular, patient does have 2 small palpable lumps in both armpits. There is no erythema, there is no drainage there is no obvious lumps noted. Discussed options with patient. Due to the small size of the lumps I believe that trying to open up and drain them would cause more trauma than he would benefit. We will go ahead and treat her with oral antibiotics. Patient will placed on clindamycin 300 mg 4 times a day for the next 7 days. She is to follow-up with her primary care provider on Monday or Monday of this week for reevaluation. She is return to emergency room if there is significant worsening of her symptoms. Patient verbalized understanding and agreement with plan. Decision to Disposition Date: Aug 12, 2018 Decision to Disposition Time: 18:37 Depart Departure Latest Vital Signs Vital Signs Date Time Temp Pulse Resp B/P (MAP) Pulse Ox O2 Delivery O2 Flow Rate FiO2 08/12/18 18:07 98.3 99 16 142/79 94 Room Air Impression: Primary Impression: Cellulitis and abscess of trunk Condition: Improved Disposition: HOME OR SELF-CARE Referrals: JOE CARSON MD (PCP) New Scripts Clindamycin Hcl (CLINDAMYCIN HCL) 300 Mg Capsule 300 MG PO Q6H, #38 CAPSULE Prov: IZZY UNDERWOOD 08/12/18 Patient Instructions: Cellulitis (ED) Additional Instructions: Take Tylenol or Ibuprofen as needed for pain. Limit activity by pain. Follow up with Dr. Carson on Monday or Monday to check the area to make sure that it is getting better. Return to the ER if condition worsens dramatically. IZZY UNDERWOOD Aug 12, 2018 18:16
[2018-08-12] MEDS ORDERED: CLIN300C99 PO (18:29)
[2018-08-12 18:30] VITALS: BP 130/62
[2018-08-12] MEDS ORDERED: TRIMETHOPRIM/SULFA 160-800 TH 2 TAB/BOTTLE PO ONE (18:30)
[2018-08-12] MEDS ORDERED: CLINDAMYCIN 150 MG CAP PO ONE (18:30)
== END 2018-08-12 19:04 | disposition home or self-care (01) ==
LOC: ER 18:20
DX: L03.319 Cellulitis of trunk, unspecified (principal)
CPT/HCPCS: 99283

== ENCOUNTER → 2018-08-14 | Outpatient (CLI) | payer MEDICAID ==
[2016-07-13 11:37] VITALS: BMI 54.4
--- NOTE | 2018-08-14 17:02 | RADIOLOGY IMAGING REPORT ---
FACILITY: [facility] PATIENT NAME: Debi Sanchez : 1980 MR: [id number] V: [id number] EXAM DATE: [id number] ORDERING PHYSICIAN: ZACHERY GOMEZ TECHNOLOGIST: Location: [facility] - [place], [place] Patient: Debi Sanchez : 1980 Visit/Account:[id number] Date of Sevice: 08/14/2018 Exam type: L-SPINE >4 VIEWS History: Bilateral back pain without sciatica Comparison: July 12, 2016. Findings: There is a gentle levoconvex curvature to the thoracolumbar spine which was not appreciated previousl y. This could in part be positional in nature. There are five nonrib-bearing lumbar-type vertebral bodies present there is a 1.5 cm anterior listhesis of L5 with respect S1 which is increased from 1.1 cm on the prior study. As previously noted this is related to pars defects at L5 there is moderate disc space narrowing at L5-S1 slightly increased in the interim. There is mild disc space narrowing at L4-5 tiny intraosseous project from the superior endplates of L2 and L3 and L4. IMPRESSION: 1. 15 mm anterior listhesis of L5 with respect S1 which has increased from 11 mm previously. Findin gs are related to bilateral pars defects at L5 Moderate disc space narrowing at L5-S1 which has slightly increased in the interim Mild disc space narrowing at L4-5 Report Dictated By: Lisette Sparks MD at 08/14/2018 4:54 PM Report E-Signed By: Lisette Sparks MD at 08/14/2018 4:58 PM WSN:[email or web address]
== END ==
LOC: RAD 16:21
PROVIDERS: ATTEND Nurse Practitioner Primary Care
DX: M47.897 Other spondylosis, lumbosacral region (principal)
CPT/HCPCS: 72120

== ENCOUNTER → 2018-09-27 | Outpatient (CLI) | payer MEDICAID ==
[2016-07-13 11:37] VITALS: BMI 54.4
[~2018-09-27] MED LIST changes: +LISI5TAB25 PO; -OMEP-125 PO; +OMEP-126 PO; +ONDA4TAB9 PO; -RANI-366 PO; +RANI-54 PO
== END ==
LOC: LAB 09:19
PROVIDERS: ATTEND Emergency Medicine
DX: E03.9 Hypothyroidism, unspecified (principal)
CPT/HCPCS: 36415; 84443

== ENCOUNTER 2018-09-28 19:59 | Emergency (ER) | payer MEDICAID ==
[2016-07-13 11:37] VITALS: Wt 130.0 kg
[~2018-09-28 19:59] MED LIST changes: -LISI5TAB25 PO
[2018-09-28] MEDS ORDERED: LISI5TAB25 PO (20:08)
[2018-09-28] MEDS ORDERED: ORPHENADRINE 60MG/2ML INJ IVP ONE (20:20)
[2018-09-28] MEDS ORDERED: diphenhydrAMINE 50 MG/ML VIAL IVP ONE (20:20)
[2018-09-28] MEDS ORDERED: KETOROLAC 30 MG/ML VIAL IVP ONE (20:20)
[2018-09-28] MEDS ORDERED: PROMETHAZINE 25 MG/ML 1 ML AMP IVP ONE (20:20)
[2018-09-28] MEDS ORDERED: NS(*) 0.9% 1000 ML BAG 1,000 ML IV ONE (20:20)
[2018-09-28 20:32] LABS: PLATELET COUNT, AUTOMATED 354 K/uL (150-450)
--- NOTE | 2018-09-28 20:34 | ER Report ---
History and Physical Time Seen By MD: 20:10 Hx. of Stated Complaint: MIGRAINE STARTED MON OR MON. TAKING MOTRIN AND LISINOPRIL FOR IT HPI/ROS CHIEF COMPLAINT: Migraine, nausea HISTORY OF PRESENT ILLNESS: 38 year old female presents to ED with migraine headache that has been present for three days. Patient states it feels like she has a throbbing band around her head. The worst pain in left frontal area. Patient reports she has taken ibuprofen for 3 nights with no relief. She has photophobia and phonophobia. States this migraine feels like her normal migraines. Reports associated symptoms of nausea, dizziness, and blurry vision. REVIEW OF SYSTEMS: Constitutional: No fever. HENT: Blurry vision yesterday due to migraine. Photophobia and phonophobia. Dizziness. Respiratory: No cough, no dyspnea. Cardiovascular: No chest pain, no palpitations. Gastrointestinal: Reports nausea. No vomiting. Musculoskeletal: No back pain. Allergies: Coded Allergies: cephalexin (Verified Allergy, Severe, ANAPHYLAXIS, 09/28/18) hydrocodone (Verified Allergy, Intermediate, Itching, 09/28/18) latex (Verified Allergy, Mild, ITCHING, 09/28/18) onion (Verified Allergy, Mild, ANAPHYLAXIS, 09/28/18) metformin (Verified Adverse Reaction, Intermediate, Myositis, 09/28/18) Home Meds Active Scripts Ketorolac Tromethamine (KETOROLAC TROMETHAMINE) 10 Mg Tab, 10 MG PO Q6H PRN for PAIN, #20 TAB Prov:COY UNDERWOODSSE DIRECTOR [employer] 09/28/18 Levothyroxine Sodium (LEVOTHYROXINE SODIUM) 100 Mcg Tablet, 100 MCG PO DAILY for 30 Days, #30 TAB 0 Refills Prov:JOE JOLLEY MD 09/25/18 Ondansetron 4 Mg Odt (ONDANSETRON 4 MG ODT) 4 Mg Tab.rapdis, 4 MG PO Q6H PRN for PRN, #20 TAB 0 Refills Prov:JOE JOLLEY MD 09/04/18 Meclizine Hcl (MECLIZINE HCL) 25 Mg Tablet, 1 TAB PO BID, #180 TAB 3 Refills Prov:JOE JOLLEY MD 07/30/18 Tizanidine Hcl (TIZANIDINE HCL) 2 Mg Tablet, 1 TAB PO DAILY, #90 TAB 3 Refills Prov:JOE JOLLEY MD 06/22/18 Lisinopril (LISINOPRIL) 20 Mg Tablet, 20 MG PO QDAY, #90 TAB 3 Refills Prov:JOE JOLLEY MD 05/07/18 Epinephrine (EPIPEN 2-YUVAL) 0.3 Mg/0.3 Ml Pen.injctr, 0.3 MG IM PRN, #1 PACK 0 Refills Prov:HAKEEM FIGUEROA [employer]OR [employer] 12/18/17 Ranitidine Hcl (ZANTAC) 150 Mg Tablet, 1 TAB PO BID, #180 TAB 3 Refills Prov:JOE JOLLEY MD 11/03/17 Epinephrine (EPIPEN 2-YUVAL) 0.3 Mg/0.3 Ml Pen.injctr, 0.3 MG IM PRN, #2 EACH 0 Refills Prov:JOE JOLLEY MD 11/03/17 Fexofenadine Hcl (FARIHA ALLERGY) 180 Mg Tablet, 1 TAB PO QDAY, #90 TAB 3 Refills Prov:JOE JOLLEY MD 10/05/17 Fluticasone Prop 50 Mcg Ns (FLONASE 50 MCG NS) 16 Gm [place].susp, 1 SPRAYS NS BID, #3 BOT 3 Refills Prov:JOE JOLLEY MD 01/20/17 Albuterol Sulfate 90 Mcg/Act (PROAIR HFA 90 MCG/ACT) 8.5 Gm Hfa.aer.ad, 1-2 PUFF IH 3-4XD, #1 INHALER 11 Refills Prov:JOE JOLLEY MD 11/01/16 Albuterol Sulfate 0.083% (ALBUTEROL SULFATE 0.083%) 2.5 Mg/3 Ml Vial.neb, 2.5 MG INH Q4-6H PRN for WHEEZING, #25 INH 2 Refills Prov:RAYSHAWN ARMAS DO 06/15/16 Reported Medications Lisinopril (LISINOPRIL) 5 Mg Tablet, 5 MG PO QDAY, TAB 09/28/18 Lurasidone Hcl (LATUDA) 20 Mg Tablet, 20 MG PO HS 10/18/17 Gabapentin (GABAPENTIN) 300 Mg Capsule, 1 CAP PO TID, CAPSULE 09/12/16 Desvenlafaxine Succinate (PRISTIQ ER) 100 Mg Tabcr, 1 TAB PO DAILY 07/12/16 Levetiracetam (KEPPRA) 250 Mg Tablet, 1 TAB PO BID, TAB 02/29/16 Multivitamin (DAILY MULTIPLE VITAMIN) 1 Each Tablet, 1 EACH PO QDAY 01/23/16 Discontinued Scripts Clindamycin Hcl (CLINDAMYCIN HCL) 300 Mg Capsule, 300 MG PO Q6H, #38 CAPSULE Prov:IZZY UNDERWOOD [employer]OR [employer] 08/12/18 Past Medical/Surgical History Past medical hx significant for seizures, migraines, CHF, HTN, hypercholesterolemia, emphysema, pneumonia, COPD, GERD, abdominal pain, frequent UTI, cyst on ovary, arthritis, right ankle and toe fractures, hayfever, diabetes, thyroid disorder, eczema, bipolar disorder, depression/anxiety. Past surgical hx of tubal ligation, . Hx Smoking: Yes Smoking Status: Current: Every Day Smoker Exposure to Second Hand Smoke?: No Hx Substance Use Disorder: No Hx Alcohol Use: Yes (RARE) Constitutional Vital Sign - Last 24 Hours 09/28/18 09/28/18 20:03 20:44 Temp 98.3 Pulse 100 Resp 18 B/P (MAP) 120/35 Pulse Ox 91 O2 Delivery Room Air O2 Flow Rate 2.0 Physical Exam General Appearance: The patient is alert, has no immediate need for airway protection and no current signs of toxicity. Eyes: Pupils equal and round no injection. Respiratory: Chest is non tender, lungs are clear to auscultation. Cardiac: regular rate and rhythm Gastrointestinal: Abdomen is soft and non tender, no masses, bowel sounds normal. Musculoskeletal: Neck: Neck is supple and non tender. Extremities have full range of motion and are non tender. Neuro: extraocular movements intact, negative pronator drift, able to perform heel to manuel, CN7 intact. Skin: No rashes or lesions. DIFFERENTIAL DIAGNOSIS: After history and physical exam differential diagnosis was considered for migraine, nausea, dehydration. Medical Decision Making Data Points Result Diagram: 09/28/18202109/28/182021 Laboratory Hematology Test 09/28/18 20:22 Red Blood Count 4.49 M/uL (4.17-5.56) Mean Corpuscular Volume 89.4 fL (80.0-96.0) Mean Corpuscular Hemoglobin 30.3 pg (26.0-33.0) Mean Corpuscular Hemoglobin Concent 33.9 g/dL (32.0-36.0) Red Cell Distribution Width 14.5 % (11.5-14.5) Mean Platelet Volume 7.5 fL (7.2-11.1) Neutrophils (%) (Auto) 63.0 % (39.4-72.5) Lymphocytes (%) (Auto) 28.3 % (17.6-49.6) Monocytes (%) (Auto) 4.4 % (4.1-12.4) Eosinophils (%) (Auto) 3.0 % (0.4-6.7) Basophils (%) (Auto) 1.3 % (0.3-1.4) Nucleated RBC Relative Count (auto) 0.1 /100WBC Neutrophils # (Auto) 6.0 K/uL (2.0-7.4) Lymphocytes # (Auto) 2.7 K/uL (1.3-3.6) Monocytes # (Auto) 0.4 K/uL (0.3-1.0) Eosinophils # (Auto) 0.3 K/uL (0.0-0.5) Basophils # (Auto) 0.1 K/uL (0.0-0.1) Nucleated RBC Absolute Count (auto) 0.01 K/uL Erythrocyte Sedimentation Rate 31 mm/HOUR (0-20) Sodium Level 139 mmol/L (137-145) Potassium Level 4.2 mmol/L (3.5-5.0) Chloride Level 103 mmol/L (98-107) Carbon Dioxide Level 23 mmol/L (22-31) Blood Urea Nitrogen 10 mg/dl (7-18) Creatinine 0.70 mg/dl (0.52-1.04) Glomerular Filtration Rate Calc > 60.0 Random Glucose 118 mg/dl (75-110) Calcium Level 9.3 mg/dl (8.4-10.2) Total Bilirubin 0.5 mg/dl (0.2-1.3) Aspartate Amino Transf (AST/SGOT) 68 U/L (0-35) Alanine Aminotransferase (ALT/SGPT) 44 U/L (0-56) Alkaline Phosphatase 109 U/L (0-126) C-Reactive Protein 1.7 mg/dl (<1.0) Total Protein 7.7 g/dl (6.3-8.2) Albumin 4.3 g/dl (3.5-5.0) Chemistry Test 09/28/18 20:22 White Blood Count 9.6 k/uL (4.5-11.0) Red Blood Count 4.49 M/uL (4.17-5.56) Hemoglobin 13.6 g/dL (12.0-16.0) Hematocrit 40.1 % (34.0-47.0) Mean Corpuscular Volume 89.4 fL (80.0-96.0) Mean Corpuscular Hemoglobin 30.3 pg (26.0-33.0) Mean Corpuscular Hemoglobin Concent 33.9 g/dL (32.0-36.0) Red Cell Distribution Width 14.5 % (11.5-14.5) Platelet Count 354 K/uL (150-450) Mean Platelet Volume 7.5 fL (7.2-11.1) Neutrophils (%) (Auto) 63.0 % (39.4-72.5) Lymphocytes (%) (Auto) 28.3 % (17.6-49.6) Monocytes (%) (Auto) 4.4 % (4.1-12.4) Eosinophils (%) (Auto) 3.0 % (0.4-6.7) Basophils (%) (Auto) 1.3 % (0.3-1.4) Nucleated RBC Relative Count (auto) 0.1 /100WBC Neutrophils # (Auto) 6.0 K/uL (2.0-7.4) Lymphocytes # (Auto) 2.7 K/uL (1.3-3.6) Monocytes # (Auto) 0.4 K/uL (0.3-1.0) Eosinophils # (Auto) 0.3 K/uL (0.0-0.5) Basophils # (Auto) 0.1 K/uL (0.0-0.1) Nucleated RBC Absolute Count (auto) 0.01 K/uL Erythrocyte Sedimentation Rate 31 mm/HOUR (0-20) Glomerular Filtration Rate Calc > 60.0 Calcium Level 9.3 mg/dl (8.4-10.2) Total Bilirubin 0.5 mg/dl (0.2-1.3) Aspartate Amino Transf (AST/SGOT) 68 U/L (0-35) Alanine Aminotransferase (ALT/SGPT) 44 U/L (0-56) Alkaline Phosphatase 109 U/L (0-126) C-Reactive Protein 1.7 mg/dl (<1.0) Total Protein 7.7 g/dl (6.3-8.2) Albumin 4.3 g/dl (3.5-5.0) ED Course/Re-evaluation ED Course Upon arrival to the ED, patient admitted to an exam room, hx and physical obtained, differentials considered. Patient presents with migraine for three days. Patient states it feels like she has a throbbing band around her head. The worst pain in left frontal area. Rates pain over a 10 out of 10. Patient reports she has taken ibuprofen for 3 nights with no relief. She has photophobia and phonophobia. States this migraine feels like her normal migraines. Reports associated symptoms of nausea, dizziness, and blurry vision. On exam, lungs are clear, heart rate and rhythm regular. Patient neurologically intact with PERRL, extraocular movements intact, negative pronator drift, able to perform heel to manuel, CN7 intact. IV started. CBC, CMP, ESR, CRP collected. Ketorolac 30mg IV, phenergan 12.5mg IV, benadryl 25mg IV, and Flexeril 30mg IV given. After approximately 30 minutes, patient reports pain came down to a 5 out of 10. Discussed with patient about going home with a prescription of ketorolac and that she may take her tizanidine as needed for muscle relaxation. Patient agrees with plan of care. Decision to Disposition Date: Sep 28, 2018 Decision to Disposition Time: 21:15 Depart Departure Latest Vital Signs Vital Signs Date Time Temp Pulse Resp B/P (MAP) Pulse Ox O2 Delivery O2 Flow Rate FiO2 09/28/18 20:44 2.0 09/28/18 20:03 98.3 100 18 120/35 91 Room Air Impression: Primary Impression: Migraine Condition: Improved Disposition: HOME OR SELF-CARE Referrals: JOE JOLLEY MD (PCP) New Scripts Ketorolac Tromethamine (KETOROLAC TROMETHAMINE) 10 Mg Tab 10 MG PO Q6H PRN for PAIN, #20 TAB Prov: IZZY UNDERWOOD DIRECTOR [employer] 09/28/18 Patient Instructions: Migraine Headache (ED) Additional Instructions: Drink plenty of water and get plenty of rest. Follow-up with your primary care provider next week. You may take the prescribed anti-inflammatory every 6 hours as needed for pain. You may take your Tizanidine as prescribed for muscle tension. Please return to the ER if your migraine worsens, if your pain is the worst migraine pain you have experienced, if you experience any difficulty breathing, or for any other concern. Problem Qualifiers Primary Impression: Migraine Migraine type: without aura Status migrainosus presence: without status migrainosus Intractability: not intractable Qualified Codes: G43.009 - Migraine without aura, not intractable, without status migrainosus IZZY UNDERWOOD Sep 28, 2018 20:34
[2018-09-28 21:00] VITALS: BP 124/82
[2018-09-28] MEDS ORDERED: KET10 PO (21:13)
== END 2018-09-28 21:29 | disposition home or self-care (01) ==
LOC: ER 20:03
DX: G43.009 Migraine without aura, not intractable, without status migrainosus (principal)
CPT/HCPCS: 85025; 85651; 86140; 96361; 96374; 96375; 99284; J1200; J1885; J2360; J2550; J7030; 82040; 82247; 82310; 82374; 82435; 82565; 82947; 84075; 84132; 84155; 84295; 84450; 84460; 84520

== ENCOUNTER 2018-10-03 00:58 | Emergency (ER) | payer MEDICAID ==
[2016-07-13 11:37] VITALS: Wt 130.0 kg
[~2018-10-03 00:58] MED LIST changes: +LISI5TAB25 PO
[2018-10-03] MEDS ORDERED: diphenhydrAMINE 50 MG/ML VIAL IVP ONE (01:40)
[2018-10-03] MEDS ORDERED: ORPHENADRINE 60MG/2ML INJ IVP ONE (01:40)
[2018-10-03] MEDS ORDERED: NS(*) 0.9% 1000 ML BAG 1,000 ML IV ONE (01:40)
[2018-10-03] MEDS ORDERED: KETOROLAC 30 MG/ML VIAL IVP ONE (01:40)
[2018-10-03] MEDS ORDERED: PROMETHAZINE 25 MG/ML 1 ML AMP IVP ONE (01:40)
--- NOTE | 2018-10-03 01:40 | ER Report ---
History and Physical Time Seen By MD: 01:19 Hx. of Stated Complaint: took her night meds and a muscle relaxer at 10pm. hasn't help her headache. she gets 3 minutes of relief from her meds and the headache is back. says she has a stomach ache with a headache HPI/ROS CHIEF COMPLAINT: headache HISTORY OF PRESENT ILLNESS: This is a 38 year old female. She has had a headache for the last 9 days. Gets headaches several times a year, when they come, they can be stubborn and last for days. Has band like distribution which is common. Photophobia is common and present now. Sound sensitivity. Nausea. No abdominal pain. Not short of breath. No chest pain. No vision changes other than the photophobia. No numbness of arms/legs. No fevers or chills. Allergies: Coded Allergies: cephalexin (Verified Allergy, Severe, ANAPHYLAXIS, 10/03/18) hydrocodone (Verified Allergy, Intermediate, Itching, 10/03/18) latex (Verified Allergy, Mild, ITCHING, 10/03/18) onion (Verified Allergy, Mild, ANAPHYLAXIS, 10/03/18) metformin (Verified Adverse Reaction, Intermediate, Myositis, 10/03/18) Home Meds Active Scripts Prednisone (PREDNISONE) 20 Mg Tablet, 60 MG PO QDAY, #12 TAB 0 Refills Prov:HARRIS WATSON MD 10/03/18 Ketorolac Tromethamine (KETOROLAC TROMETHAMINE) 10 Mg Tab, 10 MG PO Q6H PRN for PAIN, #20 TAB Prov:IZZY UNDERWOOD 09/28/18 Levothyroxine Sodium (LEVOTHYROXINE SODIUM) 100 Mcg Tablet, 100 MCG PO DAILY for 30 Days, #30 TAB 0 Refills Prov:JOE JOLLEY MD 09/25/18 Ondansetron 4 Mg Odt (ONDANSETRON 4 MG ODT) 4 Mg Tab.rapdis, 4 MG PO Q6H PRN for PRN, #20 TAB 0 Refills Prov:OJE JOLLEY MD 09/04/18 Meclizine Hcl (MECLIZINE HCL) 25 Mg Tablet, 1 TAB PO BID, #180 TAB 3 Refills Prov:JOE JOLLEY MD 07/30/18 Tizanidine Hcl (TIZANIDINE HCL) 2 Mg Tablet, 1 TAB PO DAILY, #90 TAB 3 Refills Prov:JOE JOLLEY MD 06/22/18 Lisinopril (LISINOPRIL) 20 Mg Tablet, 20 MG PO QDAY, #90 TAB 3 Refills Prov:JOE JOLLEY MD 05/07/18 Epinephrine (EPIPEN 2-YUVAL) 0.3 Mg/0.3 Ml Pen.injctr, 0.3 MG IM PRN, #1 PACK 0 Refills Prov:HAKEEM FIGUEROA [employer]ICIAL [employer] REPORTER-BC 12/18/17 Ranitidine Hcl (ZANTAC) 150 Mg Tablet, 1 TAB PO BID, #180 TAB 3 Refills Prov:JOE JOLLEY MD 11/03/17 Epinephrine (EPIPEN 2-YUVAL) 0.3 Mg/0.3 Ml Pen.injctr, 0.3 MG IM PRN, #2 EACH 0 Refills Prov:JOE JOLLEY MD 11/03/17 Fexofenadine Hcl (FARIHA ALLERGY) 180 Mg Tablet, 1 TAB PO QDAY, #90 TAB 3 Refills Prov:JOE JOLLEY MD 10/05/17 Fluticasone Prop 50 Mcg Ns (FLONASE 50 MCG NS) 16 Gm [place].susp, 1 SPRAYS NS BID, #3 BOT 3 Refills Prov:JOE JOLLEY MD 01/20/17 Albuterol Sulfate 90 Mcg/Act (PROAIR HFA 90 MCG/ACT) 8.5 Gm Hfa.aer.ad, 1-2 PUFF IH 3-4XD, #1 INHALER 11 Refills Prov:JOE JOLLEY MD 11/01/16 Albuterol Sulfate 0.083% (ALBUTEROL SULFATE 0.083%) 2.5 Mg/3 Ml Vial.neb, 2.5 MG INH Q4-6H PRN for WHEEZING, #25 INH 2 Refills Prov:RAYSHAWN ARMAS DO 06/15/16 Reported Medications Lisinopril (LISINOPRIL) 5 Mg Tablet, 5 MG PO QDAY, TAB 09/28/18 Lurasidone Hcl (LATUDA) 20 Mg Tablet, 20 MG PO HS 10/18/17 Gabapentin (GABAPENTIN) 300 Mg Capsule, 1 CAP PO TID, CAPSULE 09/12/16 Desvenlafaxine Succinate (PRISTIQ ER) 100 Mg Tabcr, 1 TAB PO DAILY 07/12/16 Levetiracetam (KEPPRA) 250 Mg Tablet, 1 TAB PO BID, TAB 02/29/16 Multivitamin (DAILY MULTIPLE VITAMIN) 1 Each Tablet, 1 EACH PO QDAY 01/23/16 Discontinued Scripts Clindamycin Hcl (CLINDAMYCIN HCL) 300 Mg Capsule, 300 MG PO Q6H, #38 CAPSULE Prov:IZZY UNDERWOOD OFFICIAL COURT REPORTER 08/12/18 Reviewed Nurses Notes: Yes Hx Smoking: Yes Smoking Status: Current: Every Day Smoker Exposure to Second Hand Smoke?: No Hx Substance Use Disorder: No Hx Alcohol Use: Yes (RARE) Constitutional Vital Sign - Last 24 Hours 10/03/18 10/03/18 10/03/18 10/03/18 00:58 01:03 01:03 01:13 Temp 98.7 Pulse ??? 80 ??? Resp 16 B/P (MAP) 126/83 126/83 (97) Pulse Ox 94 93 O2 Delivery Room Air 10/03/18 10/03/18 10/03/18 10/03/18 01:28 01:43 01:58 02:12 Pulse ??? 77 72 B/P (MAP) 111/51 (71) Pulse Ox 93 92 93 10/03/18 10/03/18 10/03/18 10/03/18 02:14 02:28 02:30 02:43 Pulse 74 80 B/P (MAP) 100/48 (65) Pulse Ox 95 94 O2 Flow Rate 2.0 10/03/18 10/03/18 10/03/18 03:00 03:03 03:18 Pulse 69 72 B/P (MAP) 102/52 (69) Pulse Ox 96 Physical Exam General Appearance: Alert, no acute distress. Eyes: Pupils equal and round no injection. Extraocular movements intact. Reactive to light. No nystagmus. ENT: Normal oral mucosa. Moist mucous membranes. Normal posterior oropharynx. Normal nasal mucosa. Normal TM and canals bilaterally. Neck: Neck is supple and non tender. Respiratory: Chest is non tender, lungs are clear to auscultation. Cardiac: regular rate and rhythm Gastrointestinal: Abdomen is soft and non tender, no masses, bowel sounds normal. Musculoskeletal: Extremities have full range of motion. Neuro: Alert and oriented x3. Cranial nerves with eye exam as noted above, midline tongue with symmetric palate, Normal sensation and motor face. No sensory or motor functions in the extremities. Skin: No rashes or lesions. DIFFERENTIAL DIAGNOSIS: After history and physical exam differential diagnosis was considered for patient with headache, sounds like severe migraine with history of migraine, similar symptoms, but with prolonged nature, will check head CT and labs as well as giving medications to help with pain/symptoms. Medical Decision Making Data Points Result Diagram: 10/03/18 0116 10/03/18 0116 Laboratory Hematology Test 10/03/18 01:16 Red Blood Count 3.90 M/uL (4.17-5.56) Mean Corpuscular Volume 89.3 fL (80.0-96.0) Mean Corpuscular Hemoglobin 30.8 pg (26.0-33.0) Mean Corpuscular Hemoglobin Concent 34.4 g/dL (32.0-36.0) Red Cell Distribution Width 14.3 % (11.5-14.5) Mean Platelet Volume 8.0 fL (7.2-11.1) Neutrophils (%) (Auto) 58.7 % (39.4-72.5) Lymphocytes (%) (Auto) 31.8 % (17.6-49.6) Monocytes (%) (Auto) 5.6 % (4.1-12.4) Eosinophils (%) (Auto) 3.4 % (0.4-6.7) Basophils (%) (Auto) 0.5 % (0.3-1.4) Nucleated RBC Relative Count (auto) 0.1 /100WBC Neutrophils # (Auto) 4.7 K/uL (2.0-7.4) Lymphocytes # (Auto) 2.5 K/uL (1.3-3.6) Monocytes # (Auto) 0.5 K/uL (0.3-1.0) Eosinophils # (Auto) 0.3 K/uL (0.0-0.5) Basophils # (Auto) 0.0 K/uL (0.0-0.1) Nucleated RBC Absolute Count (auto) 0.00 K/uL Erythrocyte Sedimentation Rate 25 mm/HOUR (0-20) Sodium Level 139 mmol/L (137-145) Potassium Level 4.0 mmol/L (3.5-5.0) Chloride Level 104 mmol/L (98-107) Carbon Dioxide Level 22 mmol/L (22-31) Blood Urea Nitrogen 10 mg/dl (7-18) Creatinine 0.80 mg/dl (0.52-1.04) Glomerular Filtration Rate Calc > 60.0 Random Glucose 133 mg/dl (75-110) Calcium Level 8.7 mg/dl (8.4-10.2) Total Bilirubin 0.4 mg/dl (0.2-1.3) Aspartate Amino Transf (AST/SGOT) 44 U/L (0-35) Alanine Aminotransferase (ALT/SGPT) 43 U/L (0-56) Alkaline Phosphatase 97 U/L (0-126) Total Protein 6.7 g/dl (6.3-8.2) Albumin 3.7 g/dl (3.5-5.0) Chemistry Test 10/03/18 01:16 White Blood Count 8.0 k/uL (4.5-11.0) Red Blood Count 3.90 M/uL (4.17-5.56) Hemoglobin 12.0 g/dL (12.0-16.0) Hematocrit 34.8 % (34.0-47.0) Mean Corpuscular Volume 89.3 fL (80.0-96.0) Mean Corpuscular Hemoglobin 30.8 pg (26.0-33.0) Mean Corpuscular Hemoglobin Concent 34.4 g/dL (32.0-36.0) Red Cell Distribution Width 14.3 % (11.5-14.5) Platelet Count 295 K/uL (150-450) Mean Platelet Volume 8.0 fL (7.2-11.1) Neutrophils (%) (Auto) 58.7 % (39.4-72.5) Lymphocytes (%) (Auto) 31.8 % (17.6-49.6) Monocytes (%) (Auto) 5.6 % (4.1-12.4) Eosinophils (%) (Auto) 3.4 % (0.4-6.7) Basophils (%) (Auto) 0.5 % (0.3-1.4) Nucleated RBC Relative Count (auto) 0.1 /100WBC Neutrophils # (Auto) 4.7 K/uL (2.0-7.4) Lymphocytes # (Auto) 2.5 K/uL (1.3-3.6) Monocytes # (Auto) 0.5 K/uL (0.3-1.0) Eosinophils # (Auto) 0.3 K/uL (0.0-0.5) Basophils # (Auto) 0.0 K/uL (0.0-0.1) Nucleated RBC Absolute Count (auto) 0.00 K/uL Erythrocyte Sedimentation Rate 25 mm/HOUR (0-20) Glomerular Filtration Rate Calc > 60.0 Calcium Level 8.7 mg/dl (8.4-10.2) Total Bilirubin 0.4 mg/dl (0.2-1.3) Aspartate Amino Transf (AST/SGOT) 44 U/L (0-35) Alanine Aminotransferase (ALT/SGPT) 43 U/L (0-56) Alkaline Phosphatase 97 U/L (0-126) Total Protein 6.7 g/dl (6.3-8.2) Albumin 3.7 g/dl (3.5-5.0) EKG/Imaging Imaging CT Head without contrast Indication: Headache for one week. Comparison: None available. Technique: Axial CT images were obtained through the brain from the skull base to the vertex without administration of IV contrast. One of the following dose optimization techniques was utilized in the performance of this exam: Automated exposure control; adjustment of the mA and/or kV according to the patient's size; or use of an iterative reconstruction technique. Specific details can be referenced in the facility's radiology CT exam operational policy. Findings: No evidence of mass, mass effect, or midline shift. No acute intracranial hemorrhage or acute territorial infarction. Skull is nonacute. Globes and orbits are normal. The visualized paranasal sinuses and mastoid air spaces are clear. IMPRESSION: No acute intracranial abnormality. Report Dictated By: Anup Vicente MD at 10/03/2018 2:16 AM ED Course/Re-evaluation Clinical Indication for ER IV: Hydration, IV Access ED Course Gave NS 1000cc IV bolus with Norflex, Phenergan, Benadryl, and Toradol. Headache gone on re-evaluation. CT scan negative. Labs negative other than Sed rate with mild elevation. Will provide Prednisone 60mg once a day for 5 days and follow-up with PCP Decision to Disposition Date: Oct 03, 2018 Decision to Disposition Time: 03:40 Depart Departure Latest Vital Signs Vital Signs Date Time Temp Pulse Resp B/P (MAP) Pulse Ox O2 Delivery O2 Flow Rate FiO2 10/03/18 03:18 72 96 10/03/18 03:00 102/52 (69) 10/03/18 02:14 2.0 10/03/18 01:03 98.7 16 Room Air Impression: Primary Impression: Migraine Condition: Improved Disposition: HOME OR SELF-CARE Referrals: JOE JOLLEY MD (PCP) New Scripts Prednisone (PREDNISONE) 20 Mg Tablet 60 MG PO QDAY, #12 TAB 0 Refills Prov: HARRIS WATSON MD 10/03/18 Patient Instructions: Migraine Headache (ED) Additional Instructions: No change in current medications other than to use the medication Prednisone 20mg tablets, 3 tablets once a day for 4 more days. Follow-up with your regular doctor for further discussion of other possible treatments to prevent headaches. Problem Qualifiers Primary Impression: Migraine Migraine type: without aura Status migrainosus presence: without status migrainosus Intractability: not intractable Qualified Codes: G43.009 - Migraine without aura, not intractable, without status migrainosus HARRIS WATSON MD Oct 03, 2018 01:40
[2018-10-03 01:52] LABS: PLATELET COUNT, AUTOMATED 295 K/uL (150-450)
--- NOTE | 2018-10-03 02:25 | RADIOLOGY IMAGING REPORT ---
FACILITY: [facility] - [place] PATIENT NAME: Debi Sanchez : 1980 MR: [id number] V: [id number] EXAM DATE: ORDERING PHYSICIAN: HARRIS WATSON TECHNOLOGIST: Location: [facility] [place] Patient: Debi Sanchez : 1980 Visit/Account:[id number] Date of Sevice: 10/03/2018 CT Head without contrast Indication: Headache for one week. Comparison: None available. Technique: Axial CT images were obtained through the brain from the skull base to the vertex without administration of IV contrast. One of the following dose optimization techniques was utilized in th e performance of this exam: Automated exposure control; adjustment of the mA and/or kV according to t he patient's size; or use of an iterative reconstruction technique. Specific details can be referen jennifer in the facility's radiology CT exam operational policy. Findings: No evidence of mass, mass effect, or midline shift. No acute intracranial hemorrhage or acute territorial infarction. Skull is nonacute. Globes and orbits are normal. The visualized paranasal sinuses and mastoid air spaces are clear. IMPRESSION: No acute intracranial abnormality. Report Dictated By: Anup Vicente MD at 10/03/2018 2:16 AM Report E-Signed By: Anup Vicente MD at 10/03/2018 2:21 AM WSN:[id number]
[2018-10-03 03:00] VITALS: BP 102/52
[2018-10-03] MEDS ORDERED: predniSONE 20 MG TAB PO ONE (03:20)
[2018-10-03] MEDS ORDERED: PRED20TA6 PO (03:41)
== END 2018-10-03 03:45 | disposition home or self-care (01) ==
LOC: ER 01:28
DX: G43.009 Migraine without aura, not intractable, without status migrainosus (principal)
CPT/HCPCS: 70450; 82040; 82247; 82310; 82374; 82435; 82565; 82947; 84075; 84132; 84155; 84295; 84450; 84460; 84520; 85025; 85651; 96361; 96374; 96375; 99284; J1200; J1885; J2360; J2550; J7030; J7512

== ENCOUNTER → 2018-10-05 | Outpatient (CLI) | payer MEDICAID ==
[2016-07-13 11:37] VITALS: BMI 54.4
[~2018-10-05] MED LIST changes: +LEVO150T78 PO
== END ==
LOC: LAB 08:29
PROVIDERS: ATTEND Emergency Medicine
DX: R73.03 Prediabetes (principal)
CPT/HCPCS: 36415; 82465; 83036; 83718; 84478

== ENCOUNTER 2018-10-15 12:10 | Emergency (ER) | payer MEDICAID ==
[2016-07-13 11:37] VITALS: Wt 129.7 kg
--- NOTE | 2018-10-15 12:24 | ER Report ---
History and Physical Time Seen By MD: 12:22 Hx. of Stated Complaint: NAUSEA SINCE LAST NIGHT UNRELIEVED BY HOME ZOFRAN. STATES " I THINK I GOT FOOD POISONING FROM [place] ON MONDAY" HPI/ROS CHIEF COMPLAINT: Nausea, abdominal pain HISTORY OF PRESENT ILLNESS: 38-year-old female patient presents to emergency room with complaint of nausea and abdominal pain. Patient states that this been going on since last night. She states that at that time she did take a Zofran. She states that since then she's been having continual nausea. Patient states the nausea this morning was worse. She denies having any fevers, chills, vomiting. Patient states she's had diarrhea for the past month he states it is unchanged since the nausea began. Patient states she is concerned that she may have eaten "bad sushi" on Monday and started having symptoms today. She states that she has a friend who is been ill for the past several days with the same thing. She states she is not taking any other medication for this. REVIEW OF SYSTEMS: Respiratory: No cough, no dyspnea. Cardiovascular: No chest pain, no palpitations. Gastrointestinal: As noted above Musculoskeletal: No back pain. Allergies: Coded Allergies: cephalexin (Verified Allergy, Severe, ANAPHYLAXIS, 10/03/18) hydrocodone (Verified Allergy, Intermediate, Itching, 10/03/18) latex (Verified Allergy, Mild, ITCHING, 10/03/18) onion (Verified Allergy, Mild, ANAPHYLAXIS, 10/03/18) metformin (Verified Adverse Reaction, Intermediate, Myositis, 10/03/18) Home Meds Active Scripts Promethazine Hcl (PROMETHAZINE HCL) 25 Mg Tablet, 25 MG PO Q8H PRN for NAUSEA/VOMITING, #12 TAB Prov:IZZY UNDERWOOD 10/15/18 Levothyroxine Sodium (LEVOTHYROXINE SODIUM) 150 Mcg Tablet, 150 MCG PO QDAY, #60 TAB Prov:JOE JOLLEY MD 10/05/18 Prednisone (PREDNISONE) 20 Mg Tablet, 60 MG PO QDAY, #12 TAB 0 Refills Prov:HARRIS WATSON MD 10/03/18 Ketorolac Tromethamine (KETOROLAC TROMETHAMINE) 10 Mg Tab, 10 MG PO Q6H PRN for PAIN, #20 TAB Prov:IZZY UNDERWOOD 09/28/18 Ondansetron 4 Mg Odt (ONDANSETRON 4 MG ODT) 4 Mg Tab.rapdis, 4 MG PO Q6H PRN for PRN, #20 TAB 0 Refills Prov:JOE JOLLEY MD 09/04/18 Meclizine Hcl (MECLIZINE HCL) 25 Mg Tablet, 1 TAB PO BID, #180 TAB 3 Refills Prov:JOE JOLLEY MD 07/30/18 Tizanidine Hcl (TIZANIDINE HCL) 2 Mg Tablet, 1 TAB PO DAILY, #90 TAB 3 Refills Prov:JOE JOLLEY MD 06/22/18 Lisinopril (LISINOPRIL) 20 Mg Tablet, 20 MG PO QDAY, #90 TAB 3 Refills Prov:JOE JOLLEY MD 05/07/18 Epinephrine (EPIPEN 2-YUVAL) 0.3 Mg/0.3 Ml Pen.injctr, 0.3 MG IM PRN, #1 PACK 0 Refills Prov:HAKEEM FIGUEROA [facility]- 12/18/17 Ranitidine Hcl (ZANTAC) 150 Mg Tablet, 1 TAB PO BID, #180 TAB 3 Refills Prov:JOE JOLLEY MD 11/03/17 Epinephrine (EPIPEN 2-YUVAL) 0.3 Mg/0.3 Ml Pen.injctr, 0.3 MG IM PRN, #2 EACH 0 Refills Prov:JOE JOLLEY MD 11/03/17 Fexofenadine Hcl (FARIHA ALLERGY) 180 Mg Tablet, 1 TAB PO QDAY, #90 TAB 3 Refills Prov:JOE JOLLEY MD 10/05/17 Fluticasone Prop 50 Mcg Ns (FLONASE 50 MCG NS) 16 Gm [place].susp, 1 SPRAYS NS BID, #3 BOT 3 Refills Prov:JOE JOLLEY MD 01/20/17 Albuterol Sulfate 90 Mcg/Act (PROAIR HFA 90 MCG/ACT) 8.5 Gm Hfa.aer.ad, 1-2 PUFF IH 3-4XD, #1 INHALER 11 Refills Prov:JOE JOLLEY MD 11/01/16 Albuterol Sulfate 0.083% (ALBUTEROL SULFATE 0.083%) 2.5 Mg/3 Ml Vial.neb, 2.5 MG INH Q4-6H PRN for WHEEZING, #25 INH 2 Refills Prov:RAYSHAWN ARMAS V DO 06/15/16 Reported Medications Lisinopril (LISINOPRIL) 5 Mg Tablet, 5 MG PO QDAY, TAB 09/28/18 Lurasidone Hcl (LATUDA) 20 Mg Tablet, 20 MG PO HS 10/18/17 Gabapentin (GABAPENTIN) 300 Mg Capsule, 1 CAP PO TID, CAPSULE 09/12/16 Desvenlafaxine Succinate (PRISTIQ ER) 100 Mg Tabcr, 1 TAB PO DAILY 07/12/16 Levetiracetam (KEPPRA) 250 Mg Tablet, 1 TAB PO BID, TAB 02/29/16 Multivitamin (DAILY MULTIPLE VITAMIN) 1 Each Tablet, 1 EACH PO QDAY 01/23/16 Past Medical/Surgical History Past medical hx significant for seizures, migraines, CHF, HTN, hypercholesterolemia, emphysema, pneumonia, COPD, GERD, abdominal pain, frequent UTI, cyst on ovary, arthritis, right ankle and toe fractures, hayfever, diabetes, thyroid disorder, eczema, bipolar disorder, depression/anxiety. Past surgical hx of tubal ligation, . Reviewed Nurses Notes: Yes Hx Smoking: Yes Smoking Status: Current: Every Day Smoker Exposure to Second Hand Smoke?: No Hx Substance Use Disorder: No Hx Alcohol Use: Yes (RARE) Constitutional Vital Sign - Last 24 Hours 10/15/18 10/15/18 10/15/18 10/15/18 12:13 12:15 12:30 13:00 Temp 98.3 Pulse 104 101 97 97 Resp 16 B/P (MAP) 138/73 128/59 (82) 117/78 (91) Pulse Ox 92 92 90 90 O2 Delivery Room Air 10/15/18 10/15/18 10/15/18 13:15 13:30 13:45 Pulse 96 96 98 B/P (MAP) 122/66 (84) Pulse Ox 92 92 92 Physical Exam General Appearance: The patient is alert, has no immediate need for airway protection and no current signs of toxicity. Respiratory: Chest is non tender, lungs are clear to auscultation. Cardiac: regular rate and rhythm Gastrointestinal: Abdomen is soft and tender throughout, no masses, bowel sounds are hyperactive. Musculoskeletal: Neck: Neck is supple and non tender. Extremities have full range of motion and are non tender. Skin: No rashes or lesions. DIFFERENTIAL DIAGNOSIS: After history and physical exam differential diagnosis was considered for nausea and vomiting including but not limited to gastroenteritis, gastritis, appendicitis, and medication side effect. Medical Decision Making EKG/Imaging Imaging Exam: ACUTE ABDOMEN SERIES 3 VIEW Indication: nausea, abdominal pain, RAD Comparison: 08/15/2016 Findings: Single view of the chest demonstrates normal cardiomediastinal contours. The lungs are clear. There is no evidence of pneumothorax. Within the abdomen there is a nonspecific bowel gas pattern due to paucity of gas within the small bowel. Gas is noted within the large bowel. No abnormal mass or calcification is identified. IMPRESSION: 1. Negative chest 2. Nonspecific bowel gas pattern is noted within the abdomen but no obvious evidence of obstruction is seen Report Dictated By: Lucas Gardner at 10/15/2018 1:30 PM Report E-Signed By: Lucas Gardner at 10/15/2018 1:32 PM ED Course/Re-evaluation ED Course Patient was admitted to an exam room, history and physical were obtained. Differential diagnoses were considered. On examination lungs are clear, heart is regular, abdomen is soft, tender throughout and bowel sounds are hyperactive. The patient not having any fevers, chills, no vomiting I did opt to go ahead and do a acute abdominal x-ray. Results of that showed no acute cardiopulmonary processes and aspirin. I discussed the findings with the patient. We will go ahead and discharge her home. I believe that this is a gastroenteritis, we will treat her with Zofran, but she hasn't home, and Phenergan. Prescription was sent in for the Phenergan to her pharmacy. She is return to emergency room if condition worsens. She is to follow-up with her primary care provider in the next week. Patient verbalized understanding and agreement. Patient did ask for when she is to be concerned about the diarrhea. With it going on for the past month with somebody can be managed by her primary care provider. However I did recommend using some Pepto-Bismol for that. Decision to Disposition Date: Oct 15, 2018 Decision to Disposition Time: 13:39 Depart Departure Latest Vital Signs Vital Signs Date Time Temp Pulse Resp B/P (MAP) Pulse Ox O2 Delivery O2 Flow Rate FiO2 6/24/19 13:45 98 92 10/15/18 13:30 122/66 (84) 10/15/18 12:13 98.3 16 Room Air Impression: Primary Impression: Gastroenteritis Condition: Improved Disposition: HOME OR SELF-CARE Referrals: JOE JOLLEY MD (PCP) New Scripts Promethazine Hcl (PROMETHAZINE HCL) 25 Mg Tablet 25 MG PO Q8H PRN for NAUSEA/VOMITING, #12 TAB Prov: IZZY UNDERWOOD 10/15/18 Patient Instructions: Gastroenteritis (ED) Additional Instructions: Increase fluid intake. Clear liquid diet for the next 24-48 hours. After that you may advance diet as tolerated starting with complex carbohydrates; rice, bread or pasta. Follow up with your primary care provider in the next week. Return to the ER if condition worsens. You may take over the counter Pepto Bismol as needed for cramping, diarrhea and discomfort. IZZY UNDERWOOD Oct 15, 2018 12:24
[2018-10-15 13:30] VITALS: BP 122/66
--- NOTE | 2018-10-15 13:38 | RADIOLOGY IMAGING REPORT ---
FACILITY: [facility] [place] PATIENT NAME: Debi Sanchez : 1980 MR: [id number] V: [id number] EXAM DATE: ORDERING PHYSICIAN: IZZY UNDERWOOD TECHNOLOGIST: Location: [facility] - [place] Patient: Debi Sanchez : 1980 Visit/Account:[id number] Date of Sevice: 10/15/2018 Exam: ACUTE ABDOMEN SERIES 3 VIEW Indication: nausea, abdominal pain, RAD Comparison: 08/15/2016 Findings: Single view of the chest demonstrates normal cardiomediastinal contours. The lungs are [place] ar. There is no evidence of pneumothorax. Within the abdomen there is a nonspecific bowel gas pattern due to paucity of gas within the small jannette wel. Gas is noted within the large bowel. No abnormal mass or calcification is identified. IMPRESSION: 1. Negative chest 2. Nonspecific bowel gas pattern is noted within the abdomen but no obvious evidence of obstruction is seen Report Dictated By: Lucas Gardner at 10/15/2018 1:30 PM Report E-Signed By: Lucas Gardner at 10/15/2018 1:32 PM WSN:[id number]
[2018-10-15] MEDS ORDERED: PROM-110 PO (13:46)
[2018-10-17] MEDS ORDERED: FEXO-67 PO (16:15)
== END 2018-10-15 13:56 | disposition home or self-care (01) ==
LOC: ER 12:16
DX: K52.9 Noninfective gastroenteritis and colitis, unspecified (principal)
CPT/HCPCS: 74022; 99283

== ENCOUNTER 2018-11-28 18:08 | Emergency (ER) | payer MEDICAID ==
[2016-07-13 11:37] VITALS: Wt 128.1 kg
[~2018-11-28 18:08] MED LIST changes: +PROM12.557 PO
--- NOTE | 2018-11-28 18:16 | ER Report ---
History and Physical Time Seen By : 18:13 HPI/ROS CHIEF COMPLAINT: Recurrent nausea HISTORY OF PRESENT ILLNESS: This is a 38-year-old female who presents to the emergency department for recurrent nausea. Patient was seen and evaluated here this past Monday for nausea no vomiting. She states that her nausea did improve however today it suddenly return, she took 1 dose of Zofran with no real resolution not take her Phenergan, she has recurrent left lower quadrant pain that is unchanged, not worse, not better. She states she did have a good, large, normal bowel movement today. She is also taking antibiotics for a urinary tract infection. She is unsure if the nausea is a result of the antibiotics. She denies fevers or chills. No vomiting. No chest pain or shortness breath. She does have a follow-up appointment with her PCPs partner tomorrow. REVIEW OF SYSTEMS: Respiratory: No cough, no dyspnea. Cardiovascular: No chest pain, no palpitations. Gastrointestinal: As above. Musculoskeletal: No back pain. Allergies: Coded Allergies: Sulfa (Sulfonamide Antibiotics) (Verified Allergy, Severe, anaphalaxis, 11/25/18) cephalexin (Verified Allergy, Severe, ANAPHYLAXIS, 10/03/18) hydrocodone (Verified Allergy, Intermediate, Itching, 10/03/18) latex (Verified Allergy, Mild, ITCHING, 10/03/18) onion (Verified Allergy, Mild, ANAPHYLAXIS, 10/03/18) metformin (Verified Adverse Reaction, Intermediate, Myositis, 10/03/18) Home Meds Active Scripts Promethazine Hcl (PROMETHAZINE HCL) 12.5 Mg Tablet, 12.5 MG PO Q6H for Nausea, #15 TAB Prov:IZZY UNDERWOOD 11/25/18 Ranitidine Hcl (ZANTAC) 150 Mg Tablet, 1 TAB PO BID, #180 TAB 3 Refills Prov:JOE JOLLEY MD 10/29/18 Fexofenadine Hcl (FARIHA ALLERGY) 180 Mg Tablet, 1 TAB PO QDAY, #90 TAB 3 Refills Prov:JOE JOLLEY MD 10/17/18 Promethazine Hcl (PROMETHAZINE HCL) 25 Mg Tablet, 25 MG PO Q8H PRN for NAUSEA/VOMITING, #12 TAB Prov:IZZY UNDERWOOD 10/15/18 Levothyroxine Sodium (LEVOTHYROXINE SODIUM) 150 Mcg Tablet, 150 MCG PO QDAY, #60 TAB Prov:JOE JOLLEY MD 10/05/18 Prednisone (PREDNISONE) 20 Mg Tablet, 60 MG PO QDAY, #12 TAB 0 Refills Prov:HARRIS WATSON MD 10/03/18 Ketorolac Tromethamine (KETOROLAC TROMETHAMINE) 10 Mg Tab, 10 MG PO Q6H PRN for PAIN, #20 TAB Prov:IZZY UNDERWOODP 09/28/18 Ondansetron 4 Mg Odt (ONDANSETRON 4 MG ODT) 4 Mg Tab.rapdis, 4 MG PO Q6H PRN for PRN, #20 TAB 0 Refills Prov:JOE JOLLEY MD 09/04/18 Meclizine Hcl (MECLIZINE HCL) 25 Mg Tablet, 1 TAB PO BID, #180 TAB 3 Refills Prov:JOE JOLLEY MD 07/30/18 Tizanidine Hcl (TIZANIDINE HCL) 2 Mg Tablet, 1 TAB PO DAILY, #90 TAB 3 Refills Prov:JOE JOLLEY MD 06/22/18 Lisinopril (LISINOPRIL) 20 Mg Tablet, 20 MG PO QDAY, #90 TAB 3 Refills Prov:JOE JOLLEY MD 05/07/18 Epinephrine (EPIPEN 2-YUVAL) 0.3 Mg/0.3 Ml Pen.injctr, 0.3 MG IM PRN, #1 PACK 0 Refills Prov:HAKEEM FIGUEROA [facility]- 12/18/17 Epinephrine (EPIPEN 2-YUVAL) 0.3 Mg/0.3 Ml Pen.injctr, 0.3 MG IM PRN, #2 EACH 0 Refills Prov:JOE JOLLEY MD 11/03/17 Fluticasone Prop 50 Mcg Ns (FLONASE 50 MCG NS) 16 Gm [place].susp, 1 SPRAYS NS BID, #3 BOT 3 Refills Prov:JOE JOLLEY MD 01/20/17 Albuterol Sulfate 90 Mcg/Act (PROAIR HFA 90 MCG/ACT) 8.5 Gm Hfa.aer.ad, 1-2 PUFF IH 3-4XD, #1 INHALER 11 Refills Prov:JOE JOLLEY MD 11/01/16 Albuterol Sulfate 0.083% (ALBUTEROL SULFATE 0.083%) 2.5 Mg/3 Ml Vial.neb, 2.5 MG INH Q4-6H PRN for WHEEZING, #25 INH 2 Refills Prov:RAYSHAWN ARMAS V DO 06/15/16 Reported Medications Lisinopril (LISINOPRIL) 5 Mg Tablet, 5 MG PO QDAY, TAB 09/28/18 Lurasidone Hcl (LATUDA) 20 Mg Tablet, 20 MG PO HS 10/18/17 Gabapentin (GABAPENTIN) 300 Mg Capsule, 1 CAP PO TID, CAPSULE 09/12/16 Desvenlafaxine Succinate (PRISTIQ ER) 100 Mg Tabcr, 1 TAB PO DAILY 07/12/16 Levetiracetam (KEPPRA) 250 Mg Tablet, 1 TAB PO BID, TAB 02/29/16 Multivitamin (DAILY MULTIPLE VITAMIN) 1 Each Tablet, 1 EACH PO QDAY 01/23/16 Past Medical/Surgical History The patient has a past medical and surgical history of seizures, migraines, hypertension, hypercholesterolemia, asthma, emphysema, pneumonia, chronic bronchitis, rescue inhaler, GERD, urinary tract infections, ovarian cysts, arthritis, right ankle fracture, chronic back pain, hayfever, wears reading glasses, prediabetic, eczema, bipolar, anxiety, . Tubal ligation. Allergic reactions. "Silent seizures with aura". Reviewed Nurses Notes: Yes Hx Smoking: Yes Smoking Status: Current: Every Day Smoker Exposure to Second Hand Smoke?: No Hx Substance Use Disorder: No Hx Alcohol Use: Yes (RARE) Constitutional Vital Sign - Last 24 Hours 11/28/18 11/28/18 11/28/18 11/28/18 18:15 19:30 20:00 20:30 Temp 98.4 Pulse 81 78 79 75 Resp 16 B/P (MAP) 118/68 (85) 119/63 (81) 123/75 (91) Pulse Ox 93 90 91 90 O2 Delivery Room Air 11/28/18 11/28/18 11/28/18 11/28/18 21:00 21:00 21:30 22:00 Pulse 80 84 B/P (MAP) 124/76 (92) 124/76 (92) Pulse Ox 89 89 91 91 Intake and Output 11/28/18 11/28/18 11/29/18 15:03 23:03 07:03 Intake Total 500 ml Balance 500 ml Physical Exam General Appearance: The patient is alert, has no immediate need for airway protection and no current signs of toxicity. Eyes: Pupils equal and round no injection. Respiratory: Chest is non tender, lungs are clear to auscultation. Cardiac: regular rate and rhythm no murmurs, clicks or rubs. Gastrointestinal: Abdomen is very round, soft and tender to light touch to the left lower quadrant, no masses, bowel sounds normal. Musculoskeletal: Neck: Neck is supple and non tender. Extremities have full range of motion and are non tender. Skin: No rashes or lesions. DIFFERENTIAL DIAGNOSIS: After history and physical exam differential diagnosis was considered for abdominal pain including but not limited to appendicitis, cholecystitis, gastritis and urinary tract infection. nausea and vomiting including but not limited to gastroenteritis, gastritis, appendicitis, and medication side effect. Medical Decision Making Data Points Result Diagram: 11/28/18193111/28/181931 Laboratory Hematology Test 11/28/18 19:32 White Blood Count 8.1 k/uL (4.5-11.0) Red Blood Count 3.93 M/uL (4.17-5.56) L Hemoglobin 12.5 g/dL (12.0-16.0) Hematocrit 35.9 % (34.0-47.0) Mean Corpuscular Volume 91.4 fL (80.0-96.0) Mean Corpuscular Hemoglobin 31.7 pg (26.0-33.0) Mean Corpuscular Hemoglobin Concent 34.7 g/dL (32.0-36.0) Red Cell Distribution Width 14.3 % (11.5-14.5) Platelet Count 309 K/uL (150-450) Mean Platelet Volume 7.5 fL (7.2-11.1) Neutrophils (%) (Auto) 63.6 % (39.4-72.5) Lymphocytes (%) (Auto) 27.2 % (17.6-49.6) Monocytes (%) (Auto) 5.4 % (4.1-12.4) Eosinophils (%) (Auto) 3.0 % (0.4-6.7) Basophils (%) (Auto) 0.8 % (0.3-1.4) Nucleated RBC Relative Count (auto) 0.1 /100WBC Neutrophils # (Auto) 5.1 K/uL (2.0-7.4) Lymphocytes # (Auto) 2.2 K/uL (1.3-3.6) Monocytes # (Auto) 0.4 K/uL (0.3-1.0) Eosinophils # (Auto) 0.2 K/uL (0.0-0.5) Basophils # (Auto) 0.1 K/uL (0.0-0.1) Nucleated RBC Absolute Count (auto) 0.01 K/uL Chemistry Test 11/28/18 19:32 Sodium Level 138 mmol/L (137-145) Potassium Level 4.0 mmol/L (3.5-5.0) Chloride Level 101 mmol/L (98-107) Carbon Dioxide Level 26 mmol/L (22-31) Blood Urea Nitrogen 7 mg/dl (7-18) Creatinine 0.70 mg/dl (0.52-1.04) Glomerular Filtration Rate Calc > 60.0 Random Glucose 114 mg/dl (75-110) Calcium Level 9.5 mg/dl (8.4-10.2) Total Bilirubin 0.4 mg/dl (0.2-1.3) Aspartate Amino Transf (AST/SGOT) 68 U/L (0-35) Alanine Aminotransferase (ALT/SGPT) 54 U/L (0-56) Alkaline Phosphatase 104 U/L (0-126) Total Protein 7.4 g/dl (6.3-8.2) Albumin 4.1 g/dl (3.5-5.0) Serology Test 11/28/18 19:32 Monoscreen Negative (NEGATIVE) Urinalysis Test 11/28/18 21:05 Urine Color Straw Urine Clarity Clear Urine pH 6.0 pH (4.8-9.5) Urine Specific [place] 1.051 Urine Protein Negative mg/dL (NEGATIVE) Urine Glucose (UA) Negative mg/dL (NEGATIVE) Urine Ketones Negative mg/dL (NEGATIVE) Urine Blood Small (NEGATIVE) Urine Nitrite Negative (NEGATIVE) Urine Bilirubin Negative (NEGATIVE) Urine Urobilinogen Negative mg/dL (0.2-1.9) Urine Leukocyte Esterase Trace (NEGATIVE) Urine RBC 1 /HPF (0-2/HPF) Urine WBC 5 /HPF (0-5/HPF) Urine Squamous Epithelial Cells Many /LPF (</=FEW) Urine Bacteria Negative /HPF (NONE-FEW) Urine Mucus None /HPF (NONE-FEW) EKG/Imaging Imaging FACILITY: [facility] PATIENT NAME: Debi Sanchez : 1980 MR: [id number] V: [id number] EXAM DATE: ORDERING PHYSICIAN: HAKEEM FIGUEROA TECHNOLOGIST: Location: [facility] [place] Patient: Debi Sanchez : 1980 Visit/Account:[id number] Date of Sevice: 11/28/2018 EXAMINATION: CT abdomen and pelvis with contrast COMPARISON: CT 10/18/2017 and earlier. HISTORY: Left lower quadrant pain and nausea. PROCEDURE: Multiplanar contrast enhanced CT of the abdomen and pelvis with 75 mL intravenous Isovue 370. One of the following dose optimization techniques was utilized in the performance of this exam: Automated exposure control; adjustment of the mA and/or kV according to the patient's size; or use of an iterative reconstruction technique. Specific details can be referenced in the facility's radiology CT exam operational policy. FINDINGS: Visualized thorax: Negative. Liver: Enlarged fatty infiltrated liver. Gallbladder and biliary system: Negative Spleen: Mildly enlarged 14 cm spleen previously measured 12 cm on 10/18/2017. Pancreas: Negative. Adrenal glands: Negative. Kidneys and bladder: Right kidney lower pole slightly heterogeneous low- attenuation lesion now measures 2.4 x 1.7 x 2.1 cm, previously 1.7 x 1.5 x 1.8 cm. No radiopaque urolithiasis or hydronephrosis. Vessels: Negative. Bowel and mesentery: Stomach, small bowel, and appendix are unremarkable. Small amount of stool in the colon. No inflammation. Pelvic organs: Negative. Lymph nodes: No adenopathy. Free air/free fluid: None. Musculoskeletal: L5 bilateral chronic pars defects and moderate degenerative disc space loss at L5-S1 results in 7 mm of anterolisthesis, unchanged. No acute findings. IMPRESSION: 1. Hepatomegaly and hepatic steatosis. 2. Mild splenomegaly which is new since 10/18/2017. This could be related to hepatocellular disease although infection such as mononucleosis is a possibility as well. 3. Right kidney lower pole 2.4 x 1.7 x 2.1 cm low-attenuation mass previously measured 1.7 x 1.5 x 1.8 cm; malignancy is a possibility and referral to urology is required. Pyelonephritis is considered less likely. 4. Additional chronic/incidental findings as described in the body of the report. Results were discussed with HAKEEM FIGUEROA at 11/28/2018 9:22 PM. Report Dictated By: Bj Owen MD at 11/28/2018 9:07 PM Report E-Signed By: Bj Owen MD at 11/28/2018 9:29 PM [id number] ED Course/Re-evaluation Clinical Indication for ER IV: IV Access ED Course The patient was admitted to room. A history and physical were obtained. Differential diagnoses were considered. Initially patient was agreeable with only treating the nausea, did attempt a rectal suppository which did relieve the nausea however she states that the abdominal pain intensified. IV started, repeat laboratory studies and proceeding with a CT of the abdomen and pelvis, she was agreeable. Lab studies were unremarkable, UA showing specific gravity 1.050, negative ketones, negative nitrites, small blood; blood noted in previous urine studies. CT abdomen and pelvis showing Hepatomegaly and hepatic steatosis. Mild splenomegaly which is new since 10/18/2017. This could be related to hepatocellular disease although infection such as mononucleosis is a possibility as well. Right kidney lower pole 2.4 x 1.7 x 2.1 cm low-attenuation mass previou sly measured 1.7 x 1.5 x 1.8 cm; malignancy is a possibility and referral to urology is required. I did review the results with the patient, specifically of the renal mass, she will follow up with Dr. Eldridge. The patient's nausea has improved, I determined the patient home with 1 additional rectal suppository for her nausea. She will follow up with urology, she will also follow up with her primary care provider, the patient is agreeable with this plan of care and discharged home. 11/28/2018 7:30:52 pm patient states that her nausea is improved after the Phenergan suppository however she is still having some left lower quadrant pain, she denies excess gas, no recent imaging of her abdomen, we did discuss a CT at this time, she was agreeable. Decision to Disposition Date: Nov 28, 2018 Decision to Disposition Time: 21:55 Depart Departure Latest Vital Signs Vital Signs Date Time Temp Pulse Resp B/P (MAP) Pulse Ox O2 Delivery O2 Flow Rate FiO2 11/28/18 22:00 84 91 11/28/18 21:00 124/76 (92) 11/28/18 18:15 98.4 16 Room Air Impression: Primary Impression: Right renal mass Additional Impressions: Left lower quadrant pain Nausea alone Condition: Improved Disposition: HOME OR SELF-CARE Referrals: JOE JOLLEY MD (PCP) 1 Week PATT ELDRIDGE MD 2 Days Patient Instructions: Abdominal Pain (ED), Acute Nausea and Vomiting (ED) Additional Instructions: I do not have a clear answer for your recurrent lower abdominal pain, nothing showing up on the CT that could be causing that pain. An incidental finding was a mass on the right kidney, please contact Dr. Eldridge's office tomorrow to schedule a follow up as soon as possible. Drink plenty of water. Get plenty of rest. Take the medications as prescribed. Follow up with your pcp in one week for reevaluation. Return to the ED for any other concerns or worsening symptoms. Problem Qualifiers HAKEEM FIGUEROA FINANCIAL AID OFFICER-BC Nov 28, 2018 18:16
[2018-11-28] MEDS ORDERED: PROMETHAZINE HCL(*) 25 MG SUPP PR ONE ×2 (18:35→21:55)
[2018-11-28] MEDS ORDERED: IOPAMIDOL 76% 100 ML INFUS BTL 100 ML ONE (19:39)
[2018-11-28 19:51] LABS: PLATELET COUNT, AUTOMATED 309 K/uL (150-450)
[2018-11-28 21:00] VITALS: BP 124/76
--- NOTE | 2018-11-28 21:36 | RADIOLOGY IMAGING REPORT ---
[place] [facility] [place] NAME: Debi Sanchez : 1980 MR: [id number] V: [id number] EXAM DATE: ORDERING PHYSICIAN: HAKEEM FIGUEROA TECHNOLOGIST: [place] [facility] [place]bi [place] : 1980 Visit/Account:[id number] Date of Sevice: 11/28/2018 EXAMINATION: CT abdomen and pelvis with contrast COMPARISON: CT 10/18/2017 and earlier. HISTORY: Left lower quadrant pain and nausea. PROCEDURE: Multiplanar contrast enhanced CT of the abdomen and pelvis with 75 mL intravenous Isovue 3 70. One of the following dose optimization techniques was utilized in the performance of this exam: A utomated exposure control; adjustment of the mA and/or kV according to the patient's size; or use of an iterative reconstruction technique. Specific details can be referenced in the facility's radiolo gy CT exam operational policy. FINDINGS: Visualized thorax: Negative. Liver: Enlarged fatty infiltrated liver. Gallbladder and biliary system: Negative Spleen: Mildly enlarged 14 cm spleen previously measured 12 cm on 10/18/2017. Pancreas: Negative. Adrenal glands: Negative. Kidneys and bladder: Right kidney lower pole slightly heterogeneous low-attenuation lesion now measur es 2.4 x 1.7 x 2.1 cm, previously 1.7 x 1.5 x 1.8 cm. No radiopaque urolithiasis or hydronephrosis. Vessels: Negative. Bowel and mesentery: Stomach, small bowel, and appendix are unremarkable. Small amount of stool in th e colon. No inflammation. Pelvic organs: Negative. Lymph nodes: No adenopathy. Free air/free fluid: None. Musculoskeletal: L5 bilateral chronic pars defects and moderate degenerative disc space loss at L5-S1 results in 7 mm of anterolisthesis, unchanged. No acute findings. IMPRESSION: 1. Hepatomegaly and hepatic steatosis. 2. Mild splenomegaly which is new since 10/18/2017. This could be related to hepatocellular disease al though infection such as mononucleosis is a possibility as well. 3. Right kidney lower pole 2.4 x 1.7 x 2.1 cm low-attenuation mass previously measured 1.7 x 1.5 x 1. 8 cm; malignancy is a possibility and referral to urology is required. Pyelonephritis is considered l ess likely. 4. Additional chronic/incidental findings as described in the body of the report. Results were discussed with HAKEEM FIGUEROA at 11/28/2018 9:22 PM. Report Dictated By: Bj Owen MD at 11/28/2018 9:07 PM Report E-Signed By: Bj Owen MD at 11/28/2018 9:29 PM WSN:[id number]
[2018-11-28] MEDS ORDERED: NS(*) 0.9% 500 ML BAG 500 ML IV ONE (21:40)
[2018-12-03] MEDS ORDERED: LEVO200T50 PO (15:30)
== END 2018-11-28 22:21 | disposition home or self-care (01) ==
LOC: ER 18:20
DX: N28.9 Disorder of kidney and ureter, unspecified (principal); R11.0 Nausea; R10.32 Left lower quadrant pain
CPT/HCPCS: 74177; 81001; 85025; 86308; 99284; J7040; J8498; Q9967; 82040; 82247; 82310; 82374; 82435; 82565; 82947; 84075; 84132; 84155; 84295; 84450; 84460; 84520

== ENCOUNTER → 2018-11-29 | Outpatient (CLI) | payer MEDICAID ==
[2016-07-13 11:37] VITALS: BMI 54.4
[~2018-11-29] MED LIST changes: +LEVO200T50 PO
== END ==
LOC: LAB 10:33
PROVIDERS: ATTEND Emergency Medicine
DX: E03.9 Hypothyroidism, unspecified (principal)
CPT/HCPCS: 36415; 84443

== ENCOUNTER 2018-12-10 03:25 | Emergency (ER) | payer MEDICAID ==
[2016-07-13 11:37] VITALS: Wt 128.1 kg
--- NOTE | 2018-12-10 03:27 | ER Report ---
History and Physical Time Seen By MD: 03:22 HPI/ROS CHIEF COMPLAINT: Abdominal pain, nausea HISTORY OF PRESENT ILLNESS: 38-year-old female with a history of abdominal pain. Seen here 10 days ago, had an extensive evaluation including a CT scan. There was a mass found on the right kidney. Patient was advised to follow-up with urologist. She was discharged on Zofran and Phenergan. Tired to bed last night without any difficulty. She woke up with severe crampy abdominal pain which she rates as a 9/10. She describes the pain as being all around her abdomen as appeared to previously when it was in the left lower quadrant. Patient notes the pain comes and goes with a colicky nature. Patient had biscuits and corned beef last night for dinner as well as Cardoza for drink. Patient notes she's been having soft stools. She notes no dysuria. She recently was treated for urinary tract infection. REVIEW OF SYSTEMS: Respiratory: No cough, no dyspnea. Cardiovascular: No chest pain, no palpitations. Gastrointestinal: As above Musculoskeletal: No back pain. Allergies: Coded Allergies: Sulfa (Sulfonamide Antibiotics) (Verified Allergy, Severe, anaphalaxis, 12/10/18) cephalexin (Verified Allergy, Severe, ANAPHYLAXIS, 12/10/18) hydrocodone (Verified Allergy, Intermediate, Itching, 12/10/18) latex (Verified Allergy, Mild, ITCHING, 12/10/18) onion (Verified Allergy, Mild, ANAPHYLAXIS, 12/10/18) metformin (Verified Adverse Reaction, Intermediate, Myositis, 12/10/18) Home Meds Active Scripts Promethazine Hcl (PROMETHAZINE HCL) 25 Mg Tablet, 25 MG PO Q6H PRN for NAUSEA/VOMITING, #14 TAB Prov:GERONIMO ESPOSITO DO 12/10/18 Dicyclomine Hcl (DICYCLOMINE HCL) 10 Mg Capsule, 10 MG PO QID PRN for crampy abdominal pain, #30 CAPSULE Prov:GERONIMO ESPOSITO DO 12/10/18 Levothyroxine Sodium (LEVOTHYROXINE SODIUM) 200 Mcg Tablet, 200 MCG PO QDAY, #45 TAB 0 Refills Prov:JOE JOLLEY MD 12/03/18 Promethazine Hcl (PROMETHAZINE HCL) 12.5 Mg Tablet, 12.5 MG PO Q6H for Nausea, #15 TAB Prov:IZZY [facility] 11/25/18 Ranitidine Hcl (ZANTAC) 150 Mg Tablet, 1 TAB PO BID, #180 TAB 3 Refills Prov:JOE JOLLEY MD 10/29/18 Fexofenadine Hcl (FARIHA ALLERGY) 180 Mg Tablet, 1 TAB PO QDAY, #90 TAB 3 Refills Prov:JOE JOLLEY MD 10/17/18 Promethazine Hcl (PROMETHAZINE HCL) 25 Mg Tablet, 25 MG PO Q8H PRN for NAUSEA/VOMITING, #12 TAB Prov:IZZY [facility] 10/15/18 Prednisone (PREDNISONE) 20 Mg Tablet, 60 MG PO QDAY, #12 TAB 0 Refills Prov:HARRIS WATSON MD 10/03/18 Ketorolac Tromethamine (KETOROLAC TROMETHAMINE) 10 Mg Tab, 10 MG PO Q6H PRN for PAIN, #20 TAB Prov:IZZY [facility] 09/28/18 Ondansetron 4 Mg Odt (ONDANSETRON 4 MG ODT) 4 Mg Tab.rapdis, 4 MG PO Q6H PRN for PRN, #20 TAB 0 Refills Prov:JOE JOLLEY MD 09/04/18 Meclizine Hcl (MECLIZINE HCL) 25 Mg Tablet, 1 TAB PO BID, #180 TAB 3 Refills Prov:JOE JOLLEY MD 07/30/18 Tizanidine Hcl (TIZANIDINE HCL) 2 Mg Tablet, 1 TAB PO DAILY, #90 TAB 3 Refills Prov:JOE JOLLEY MD 06/22/18 Lisinopril (LISINOPRIL) 20 Mg Tablet, 20 MG PO QDAY, #90 TAB 3 Refills Prov:JOE JOLLEY MD 05/07/18 Epinephrine (EPIPEN 2-YUVAL) 0.3 Mg/0.3 Ml Pen.injctr, 0.3 MG IM PRN, #1 PACK 0 Refills Prov:HAKEEM FIGUEROA [facility]- 12/18/17 Epinephrine (EPIPEN 2-YUVAL) 0.3 Mg/0.3 Ml Pen.injctr, 0.3 MG IM PRN, #2 EACH 0 Refills Prov:JOE JOLLEY MD 11/03/17 Fluticasone Prop 50 Mcg Ns (FLONASE 50 MCG NS) 16 Gm [place].susp, 1 SPRAYS NS BID, #3 BOT 3 Refills Prov:JOE JOLLEY MD 01/20/17 Albuterol Sulfate 90 Mcg/Act (PROAIR HFA 90 MCG/ACT) 8.5 Gm Hfa.aer.ad, 1-2 PUFF IH 3-4XD, #1 INHALER 11 Refills Prov:JOE JOLLEY MD 11/01/16 Albuterol Sulfate 0.083% (ALBUTEROL SULFATE 0.083%) 2.5 Mg/3 Ml Vial.neb, 2.5 MG INH Q4-6H PRN for WHEEZING, #25 INH 2 Refills Prov:RAYSHAWN ARMAS DO 06/15/16 Reported Medications Lisinopril (LISINOPRIL) 5 Mg Tablet, 5 MG PO QDAY, TAB 09/28/18 Lurasidone Hcl (LATUDA) 20 Mg Tablet, 20 MG PO HS 10/18/17 Gabapentin (GABAPENTIN) 300 Mg Capsule, 1 CAP PO TID, CAPSULE 09/12/16 Desvenlafaxine Succinate (PRISTIQ ER) 100 Mg Tabcr, 1 TAB PO DAILY 07/12/16 Levetiracetam (KEPPRA) 250 Mg Tablet, 1 TAB PO BID, TAB 02/29/16 Multivitamin (DAILY MULTIPLE VITAMIN) 1 Each Tablet, 1 EACH PO QDAY 01/23/16 Discontinued Scripts Levothyroxine Sodium (LEVOTHYROXINE SODIUM) 150 Mcg Tablet, 150 MCG PO QDAY, #60 TAB Prov:JOE JOLLEY MD 10/05/18 Past Medical/Surgical History The patient has a past medical and surgical history of seizures, migraines, hypertension, hypercholesterolemia, asthma, emphysema, pneumonia, chronic bronchitis, rescue inhaler, GERD, urinary tract infections, ovarian cysts, arthritis, right ankle fracture, chronic back pain, hayfever, wears reading glasses, prediabetic, eczema, bipolar, anxiety, . Tubal ligation. Allergic reactions. "Silent seizures with aura". Reviewed Nurses Notes: Yes Old Medical Records Reviewed: Yes Hx Smoking: Yes Smoking Status: Current: Every Day Smoker Exposure to Second Hand Smoke?: No Hx Substance Use Disorder: No Hx Alcohol Use: Yes (RARE) Constitutional Vital Sign - Last 24 Hours 12/10/18 12/10/18 12/10/18 12/10/18 03:25 03:28 03:30 03:30 Temp 98.5 Pulse ??? 86 Resp 16 B/P (MAP) 137/62 (87) 137/62 132/70 (90) Pulse Ox 91 O2 Delivery Room Air 12/10/18 12/10/18 12/10/18 12/10/18 03:40 03:55 04:00 04:10 Pulse 83 ??? 82 B/P (MAP) 126/72 (90) Pulse Ox 91 91 92 12/10/18 12/10/18 12/10/18 12/10/18 04:25 04:30 04:40 04:55 Pulse 82 76 78 B/P (MAP) 129/68 (88) Pulse Ox 90 91 90 Intake and Output 12/09/18 12/09/18 12/10/18 15:04 23:04 07:04 Intake Total 1000 ml Balance 1000 ml Physical Exam Vital signs stable, afebrile, pulse ox normal General Appearance: The patient is alert, has no immediate need for airway protection and no current signs of toxicity. Mild distress Eyes: Pupils equal and round no injection. Respiratory: Chest is non tender, lungs are clear to auscultation. Cardiac: regular rate and rhythm Gastrointestinal: Abdomen is soft. Mild diffuse tenderness, no masses, bowel sounds hyperactive Musculoskeletal: Neck: Neck is supple and non tender. No lymphadenopathy Extremities have full range of motion and are non tender. Skin: No rashes or lesions. DIFFERENTIAL DIAGNOSIS: After history and physical exam differential diagnosis was considered for abdominal pain including but not limited to appendicitis, cholecystitis, gastritis and urinary tract infection. Medical Decision Making Data Points Result Diagram: 12/10/18 0406 12/10/18 0406 Laboratory Hematology Test 12/10/18 04:06 White Blood Count 7.6 k/uL (4.5-11.0) Red Blood Count 3.93 M/uL (4.17-5.56) L Hemoglobin 12.6 g/dL (12.0-16.0) Hematocrit 36.2 % (34.0-47.0) Mean Corpuscular Volume 92.0 fL (80.0-96.0) Mean Corpuscular Hemoglobin 31.9 pg (26.0-33.0) Mean Corpuscular Hemoglobin Concent 34.7 g/dL (32.0-36.0) Red Cell Distribution Width 14.4 % (11.5-14.5) Platelet Count 284 K/uL (150-450) Mean Platelet Volume 7.9 fL (7.2-11.1) Neutrophils (%) (Auto) 58.0 % (39.4-72.5) Lymphocytes (%) (Auto) 31.7 % (17.6-49.6) Monocytes (%) (Auto) 5.8 % (4.1-12.4) Eosinophils (%) (Auto) 3.4 % (0.4-6.7) Basophils (%) (Auto) 1.1 % (0.3-1.4) Nucleated RBC Relative Count (auto) 0.0 /100WBC Neutrophils # (Auto) 4.4 K/uL (2.0-7.4) Lymphocytes # (Auto) 2.4 K/uL (1.3-3.6) Monocytes # (Auto) 0.4 K/uL (0.3-1.0) Eosinophils # (Auto) 0.3 K/uL (0.0-0.5) Basophils # (Auto) 0.1 K/uL (0.0-0.1) Nucleated RBC Absolute Count (auto) 0.00 K/uL Peripheral Blood Smear Yes Y/N Chemistry Test 12/10/18 04:06 Sodium Level 135 mmol/L (137-145) Potassium Level 3.9 mmol/L (3.5-5.0) Chloride Level 106 mmol/L (98-107) Carbon Dioxide Level 17 mmol/L (22-31) Blood Urea Nitrogen 9 mg/dl (7-18) Creatinine 0.60 mg/dl (0.52-1.04) Glomerular Filtration Rate Calc > 60.0 Random Glucose 144 mg/dl (75-110) Calcium Level 8.9 mg/dl (8.4-10.2) Total Bilirubin 0.5 mg/dl (0.2-1.3) Aspartate Amino Transf (AST/SGOT) 69 U/L (0-35) Alanine Aminotransferase (ALT/SGPT) 53 U/L (0-56) Alkaline Phosphatase 100 U/L (0-126) Total Protein 6.9 g/dl (6.3-8.2) Albumin 3.9 g/dl (3.5-5.0) Amylase Level 87 U/L (0-110) Lipase 184 U/L (23-300) Human Chorionic Gonadotropin, Qual Negative (NEGATIVE) Urinalysis Test 12/10/18 03:25 Urine Color Yellow Urine Clarity Slightly-cloudy Urine pH 5.0 pH (4.8-9.5) Urine Specific [place] 1.018 Urine Protein Negative mg/dL (NEGATIVE) Urine Glucose (UA) Negative mg/dL (NEGATIVE) Urine Ketones Negative mg/dL (NEGATIVE) Urine Blood Negative (NEGATIVE) Urine Nitrite Negative (NEGATIVE) Urine Bilirubin Negative (NEGATIVE) Urine Urobilinogen Negative mg/dL (0.2-1.9) Urine Leukocyte Esterase Negative (NEGATIVE) Urine RBC 2 /HPF (0-2/HPF) Urine WBC 4 /HPF (0-5/HPF) Urine Squamous Epithelial Cells Many /LPF (</=FEW) Urine Bacteria Few /HPF (NONE-FEW) Urine Mucus None /HPF (NONE-FEW) ED Course/Re-evaluation Clinical Indication for ER IV: Hydration, IV Access ED Course Patient was admitted to an examination room. H&P was done. The differential diagnoses was considered. Patient with crampy diffuse abdominal pain after eating corn beef and this is less likely in her. Repeat laboratory studies are unremarkable. Patient's treated with Zofran, Phenergan, Toradol and told 20 mg by mouth. Her pain is much improved.. Diagnostic studies are unremarkable. Her urinary tract infection is cleared. She is advised clear liquid diet for 24-48 hours. Advance to [place] diet. Patient hard. He has a follow-up schedu led with her primary care provider on Monday, 12/12. The patient for Phenergan and for Bentyl to take at home as needed for symptom management. Decision to Disposition Date: Dec 10, 2018 Decision to Disposition Time: 04:54 Depart Departure Latest Vital Signs Vital Signs Date Time Temp Pulse Resp B/P (MAP) Pulse Ox O2 Delivery O2 Flow Rate FiO2 12/10/18 04:55 78 90 12/10/18 04:30 129/68 (88) 12/10/18 03:30 98.5 16 Room Air Impression: Primary Impression: Abdominal pain Additional Impressions: Colic cramps Nausea Condition: Improved Disposition: HOME OR SELF-CARE Referrals: JOE JOLLEY MD (PCP) New Scripts Promethazine Hcl (PROMETHAZINE HCL) 25 Mg Tablet 25 MG PO Q6H PRN for NAUSEA/VOMITING, #14 TAB Prov: VAIBHAVGERONIMO Perales DO 12/10/18 Dicyclomine Hcl (DICYCLOMINE HCL) 10 Mg Capsule 10 MG PO QID PRN for crampy abdominal pain, #30 CAPSULE Prov: GERONIMO ESPOSITO DO 12/10/18 Patient Instructions: Abdominal Pain (ED), Acute Nausea and Vomiting (ED) Additional Instructions: Follow clear liquid diet for 24-48 hours and advance to [place] diet, bananas, rice, applesauce and toast Follow-up with your primary care doctor as planned on Tuesday 12/12 Problem Qualifiers Primary Impression: Abdominal pain Abdominal location: generalized Qualified Codes: R10.84 - Generalized abdominal pain GERONIMO ESPOSITO DO Dec 10, 2018 03:27
[2018-12-10] MEDS ORDERED: NS(*) 0.9% 1000 ML BAG 1,000 ML IV ONE (03:40)
[2018-12-10] MEDS ORDERED: DICYCLOMINE HCL 10 MG CAP PO ONE (03:40)
[2018-12-10] MEDS ORDERED: KETOROLAC 30 MG/ML VIAL IVP ONE (03:40)
[2018-12-10] MEDS ORDERED: ONDANSETRON 4 MG/2 ML VIAL IVP ONE (03:40)
[2018-12-10] MEDS ORDERED: PROMETHAZINE 25 MG/ML 1 ML AMP IVP ONE (03:40)
[2018-12-10 04:30] VITALS: BP 129/68
[2018-12-10 04:49] LABS: PLATELET COUNT, AUTOMATED 284 K/uL (150-450)
[2018-12-10] MEDS ORDERED: PROMETHAZINE HCL 25 MG TAB TH 2 TAB/BOTTLE PO ONE (05:00)
[2018-12-10] MEDS ORDERED: PROM-110 PO (05:00)
[2018-12-10] MEDS ORDERED: DICY10CA11 PO (05:00)
[2018-12-12] MEDS ORDERED: DICY10CA11 PO (15:59)
[2018-12-12] MEDS ORDERED: PANT40TA65 PO (16:00)
[2018-12-12] MEDS ORDERED: EPIN0.3P15 IM (17:03)
== END 2018-12-10 05:00 | disposition home or self-care (01) ==
LOC: ER 03:30
DX: R10.84 Generalized abdominal pain (principal); R11.0 Nausea; G40.909 Epilepsy, unspecified, not intractable, without status epilepticus; I10 Essential (primary) hypertension; E78.00 Pure hypercholesterolemia, unspecified; J43.9 Emphysema, unspecified; K21.9 Gastro-esophageal reflux disease without esophagitis; F31.9 Bipolar disorder, unspecified; F41.9 Anxiety disorder, unspecified; F17.210 Nicotine dependence, cigarettes, uncomplicated; Z79.899 Other long term (current) drug therapy
CPT/HCPCS: 36415; 81001; 82150; 83690; 84703; 85025; 96361; 96374; 96375; 99284; J1885; J2405; J2550; J7030; 82040; 82247; 82310; 82374; 82435; 82565; 82947; 84075; 84132; 84155; 84295; 84450; 84460; 84520

== ENCOUNTER → 2018-12-12 | Outpatient (CLI) | payer MEDICAID ==
[2016-07-13 11:37] VITALS: BMI 54.4
[~2018-12-12] MED LIST changes: +CIPR-344 PO
[2018-12-12 16:27] LABS: PLATELET COUNT, AUTOMATED 331 K/uL (150-450)
== END ==
LOC: LAB 15:51
PROVIDERS: ATTEND Emergency Medicine
DX: E03.9 Hypothyroidism, unspecified (principal); R10.9 Unspecified abdominal pain; R16.2 Hepatomegaly with splenomegaly, not elsewhere classified
CPT/HCPCS: 36415; 82040; 82247; 82310; 82374; 82435; 82565; 82947; 84075; 84132; 84155; 84295; 84443; 84450; 84460; 84520; 85025; 86140; 86663; 86664; 86665; 87088